=== PATIENT | male | born 1960 | race Two or more races ===

== ENCOUNTER 2024-11-07 23:33 | Inpatient (IN) | payer OTHER ==
[~2024-11-07] VITALS: Ht 170.2 cm; Wt 76.0 kg
[2024-11-07 23:55] VITALS: PULSE 83; RESP 19; O2SAT 97
[2024-11-08] VITALS (10 sets, daily range): BP systolic 93–106; BP diastolic 55–70; PULSE 55–105; RESP 16–28; TEMP 98.3–98.8; O2SAT 93–98
--- NOTE | 2024-11-08 00:08 | DVH ---
CHEST RADIOGRAPH Indication: sob, cp Technique: Single frontal view of the chest was obtained COMPARISON: None FINDINGS: Lines and Tubes: Sternal wires in place. Lungs: Mild to moderate interstitial pulmonary edema. Pleura: Small bilateral effusions. No pneumothorax. Cardiomediastinal contours: Cardiomegaly Bones: Unremarkable IMPRESSION: 1. Mild to moderate interstitial pulmonary edema. 2. Small bilateral effusions.
--- NOTE | 2024-11-08 00:09 | ED.PDOC ---
History of Present Illness HPI Comments 64-year-old male with history of CHF, NE, quadruple bypass, hyperlipidemia, hypertension presents to the emergency department with 4-5 days chest pain, shortness of breath, cough, dizziness, sore throat, congestion. Chest pain radiating to the back. He has worsening bilateral lower extremity edema. He has fevers and chills. 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 Patient was noted to be hypotensive by EMS with a systolic blood pressure of 84. Multiple PVCs on rhythm strip. Patient is on eliquis and plavix, states he has been compliant with his medication. Chief Complaint: Chest Pain Time Seen by MD: 23:47 Vital Signs Vital Signs Date Time Temp Pulse Resp B/P (MAP) Pulse Ox O2 Delivery O2 Flow Rate FiO2 11/08/24 00:46 102 11/08/24 00:37 120/54 11/07/24 23:55 98.5 20 100 98.5 Physical Exam General: Awake, alert and oriented. No acute distress. Skin: Skin in warm, dry and intact. Appropriate color for ethnicity. HEENT: Nasal cannula in place The head is normocephalic and atraumatic. Conjunctivae are clear without exudates or hemorrhage. Sclera is non-icteric. EOM are intact. No signs of nystagmus. Eyelids are normal in appearance without swelling or lesions. Oral mucosa is pink and moist Neck: The neck is supple with normal range of motion. No JVD. Cardiac: Heart rate and rhythm are normal. No murmurs, gallops, or rubs are auscultated. Respiratory: No signs of respiratory distress. Lung sounds are clear in all lobes bilaterally without rales, ronchi, or wheezes. Abdominal: Abdomen is soft, non-tender without distention. Bowel sounds are present and normoactive in all four quadrants. Extremities: Bilateral lower extremity edema Neurological: The patient is awake, alert and oriented to person, place, and time with normal speech. Speech is clear. There is no facial asymmetry. Psychiatric: Appropriate mood and affect. Good judgement and insight. No visual or auditory hallucinations. Review of Systems: As stated in HPI Was a procedure done? Was a procedure done?: No EKG EKG : Comments Sinus tachycardia with multiple PVCs. No STEMI, rate of 102 Differential Dx Considerations may include: Differential diagnoses considered include acute ischemic coronary syndrome, aortic dissection, cardiac tamponade, mediastinitis, pulmonary embolus, pneumothorax, tension pneumothorax, esophageal rupture, coronary artery vasospasm, myocarditis, pericarditis, pneumonia, pulmonary edema, esophageal tear, pancreatitis, aortic stenosis, dilated cardiomyopathy, hypertrophic cardiomyopathy, mitral valve prolapse, malignancy, pleuritis, pneumomediastinum, primary pulmonary hypertension, cholecystitis, esophageal spasm, esophagus, gastritis, GERD, peptic ulcer disease, costochondritis, fibromyalgia, rib fracture, herpes zoster, radicular syndromes, thoracic outlet syndrome, so matization. X-Ray, Labs, Meds, VS Vital Signs Date Time Temp Pulse Resp B/P (MAP) Pulse Ox O2 Delivery O2 Flow Rate FiO2 11/08/24 00:46 102 11/08/24 00:37 120/54 11/07/24 23:55 98.5 108 20 120/54 (76) 100 98.5 11/07/24 23:51 98.3 110 22 104/74 (84) 94 11/07/24 23:42 102 Lab Test 11/08/24 00:51 11/08/24 00:40 11/08/24 00:28 11/08/24 00:04 Range/Units Troponin I High Sensitivity Pending 837 *H </=54 ng/L Influenza Type A Antigen Pending Influenza Type B Antigen Pending SARS-CoV-2 Antigen (Rapid) Pending Blood Gas Specimen Type Arterial Blood Gas Sample Site Right radial Blood Gas Patient Temperature 37.0 Arterial Blood Date Drawn [id number] Arterial Blood pH 7.480 H 7.350-7.450 Arterial Blood Partial Pressure CO2 33.3 L 35.0-48.0 mmHg Arterial Blood Partial Pressure O2 78.3 L 83.0-108.0 mmHg Arterial Blood HCO3 24.2 21.0-28.0 mmol/L Arterial Blood Oxygen Saturation 95.3 94.0-98.0 % Arterial Blood Base Excess 1.4 -2.0-3.0 mmol/L Arterial Blood Oxyhemoglobin 94.2 94.0-98.0 % Arterial Blood Carboxyhemoglobin 0.8 0.5-1.5 % Arterial Blood Methemoglobin 0.4 0.0-1.5 % Ayush Test Modified Blood Gas Total Hemoglobin 14.90 13.5-17.5 g/dL Blood Gas Modality Nasal cannula FiO2 % 28.0 White Blood Count 9.5 4.4-10.8 10^3/uL Red Blood Count 5.25 4.5-5.90 10^6/uL Hemoglobin 15.3 13.5-17.5 g/dL Hematocrit 45.6 41.0-53.0 % Mean Corpuscular Volume 86.9 80.0-100.0 fL Mean Corpuscular Hemoglobin 29.1 28.0-32.0 pg Mean Corpuscular Hemoglobin Concent 33.5 32.0-36.0 g/dL Red Cell Distribution Width 14.6 H 11.8-14.3 % Platelet Count 205 140-450 10^3/uL Mean Platelet Volume 9.2 6.9-10.8 fL Neutrophils (%) (Auto) 76.9 37.0-80.0 % Lymphocytes (%) (Auto) 17.0 10.0-50.0 % Monocytes (%) (Auto) 5.7 0.0-12.0 % Eosinophils (%) (Auto) 0.1 0.0-7.0 % Basophils (%) (Auto) 0.3 0.0-2.0 % Neutrophils # (Auto) 7.3 1.6-8.6 10 ^3/uL Lymphocytes # (Auto) 1.6 0.4-5.4 10 ^3/uL Monocytes # (Auto) 0.5 0-1.3 10 ^3/uL Eosinophils # (Auto) 0 0-0.8 10 ^3/uL Basophils # (Auto) 0 0-0.2 10 ^3/uL Nucleated Red Blood Cells 0.1 % Prothrombin Time Pending Prothrombin Time INR Pending Activated Partial Thromboplast Time Pending D-Dimer, Quantitative 2.47 H 0.0-0.49 mg/L FEU Sodium Level 137 136-145 mmol/L Potassium Level 3.6 3.5-5.1 mmol/L Chloride Level 102 98-107 mmol/L Carbon Dioxide Level 25 20-31 mmol/L Anion Gap 10 5-15 Blood Urea Nitrogen 17 9-23 mg/dL Creatinine 1.39 H 0.700-1.30 mg/dL Glomerular Filtration Rate Calc 57 >90 mL/min BUN/Creatinine Ratio 12.2 10.0-20.0 Serum Glucose 192 H 74-106 mg/dL Calcium Level 10.0 8.7-10.4 mg/dL Magnesium Level 2.1 1.6-2.6 mg/dL Total Bilirubin 1.0 0.2-1.0 mg/dL Aspartate Amino Transferase (AST) 27 13-40 U/L Alanine Aminotransferase (ALT) 32 7-40 U/L Alkaline Phosphatase 132 H 46-116 U/L B-Type Natriuretic Peptide 1263.17 0-100 pg/mL Total Protein 7.5 5.7-8.2 g/dL Albumin 4.5 3.2-4.8 g/dL Current Medications Medications (Trade) Dose Ordered Sig/Angela Route Start Time Stop Time Status Last Admin Furosemide (Lasix Injection) 40 mg ONCE ONCE IV 11/08/24 00:00 11/08/24 00:01 DC 11/08/24 00:37 Time of 1ST Reevaluation: 00:00 Reevaluation 1ST: Unchanged Patient Education/Counseling: Diagnosis, Treatment, Prognosis, Other (Need for admission) Family Education/Counseling: No Family Present Departure 1 Departure Time of Disposition: 00:09 Impression: Primary Impression: SOB (shortness of breath) Additional Impressions: Chest pain NSTEMI (non-ST elevated myocardial infarction) CHF exacerbation Disposition: 09 ADMITTED INPATIENT Condition: Stable Comments 01:20: Discussed with Dr. Rowland (cardiology) who reviewed EKG. Recommendation is no STEMI, heparin drip and further workup. 64 year old male with history of CAD, CHF, HTN presented with chest pain and shortness of breath. Troponin was elevated at 837. EKG showed no STEMI. CXR shows pulmonary edema. Patient started on Lasix and Heparin Drip. CT angiogram for PE pending. Patient admitted for further treatment, evaluation and monitoring. Critical Care Note Critical Care Time?: No Stability Stability form required: No Heart Score Heart Score: Heart Score Response (Comments) Value History Moderate Suspicious 1 EKG Repolarization Disturb 1 Age 45-64 1 Risk Factors >3 or Hx ASHD 2 Troponin >3 x's Normal limit 2 Total 7 NILES COELLO MD Nov 08, 2024 00:09
[2024-11-08 00:14] LABS: Basophils # (auto) 0 10 ^3/uL (0-0.2); Basophils % (auto) 0.3 % (0.0-2.0); Eosinophils # (auto) 0 10 ^3/uL (0-0.8); Eosinophils % (auto) 0.1 % (0.0-7.0); Hematocrit 45.6 % (41.0-53.0); Hemoglobin 15.3 g/dL (13.5-17.5); Lymphocytes # (auto) 1.6 10 ^3/uL (0.4-5.4); Mean Corpuscular Hemoglobin 29.1 pg (28.0-32.0); Mean Corpuscular Hgb Conc. 33.5 g/dL (32.0-36.0); Mean Corpuscular Volume 86.9 fL (80.0-100.0); Monocytes # (auto) 0.5 10 ^3/uL (0-1.3); Monocytes % (auto) 5.7 % (0.0-12.0); Neutrophils # (auto) 7.3 10 ^3/uL (1.6-8.6); Neutrophils % (auto) 76.9 % (37.0-80.0); Nucleated Red Blood Cells % 0.1 %; Platelet Count (auto) 205 10^3/uL (140-450); Red Blood Cells 5.25 10^6/uL (4.5-5.90); Red Cell Distribution Width 14.6 % (11.8-14.3); White Blood Cell 9.5 10^3/uL (4.4-10.8)
[2024-11-08 00:33] LABS: INR 1.17 (0.9-1.15); Prothrombin Time 12.2 sec (9.3-11.8)
[2024-11-08] MEDS: FUROSEMIDE 40 MG/4 ML VIAL IV ONE (00:37)
[2024-11-08 00:38] LABS: Alanine Aminotransferase 32 U/L (7-40); Albumin 4.5 g/dL (3.2-4.8); Anion Gap 10 (5-15); Aspartate Aminotransferase 27 U/L (13-40); Carbon Dioxide 25 mmol/L (20-31); Chloride 102 mmol/L (98-107); Magnesium 2.1 mg/dL (1.6-2.6); Potassium 3.6 mmol/L (3.5-5.1); Sodium 137 mmol/L (136-145); Total Protein 7.5 g/dL (5.7-8.2)
[2024-11-08 00:38] LABS: Base Excess 1.4 mmol/L (-2.0-3.0)
[2024-11-08 00:42] LABS: Alkaline Phosphatase 132 U/L (46-116); Glucose 192 mg/dL (74-106)
[2024-11-08 00:50] LABS: BUN/Creatinine Ratio 12.2 (10.0-20.0); Blood Urea Nitrogen 17 mg/dL (9-23)
[2024-11-08] MEDS: HEPARIN SODIUM (PORCINE) 5000 UNITS/ML 1ML VIAL IV ONE (01:27)
[2024-11-08 01:57] LABS: COVID19 ANTIGEN SOFIA FIA NEGATIVE (NEGATIVE); Rapid Influenza A Negative (Negative); Rapid Influenza B Negative (Negative)
[2024-11-08] MEDS: IOHEXOL 350 MG/ML 100ML IJ ONE (02:25)
[2024-11-08] MEDS ORDERED: ACETAMINOPHEN 325 MG TAB PO PRN (02:45)
[2024-11-08] MEDS ORDERED: DOCUSATE SOD 100 MG CAP PO PRN (02:45)
[2024-11-08] MEDS ORDERED: ONDANSETRON HCL 4 MG/2 ML VIAL IV PRN (02:45)
[2024-11-08] MEDS ORDERED: HYDROcodone-ACET 5/325MG TAB PO PRN (02:45)
[2024-11-08] MEDS ORDERED: DEXTROSE (50%) 50ML SYRG IV PRN (02:45)
--- NOTE | 2024-11-08 02:53 | DVHHP2 ---
History of Present Illness Reason for Visit: Acute exacerbation of congestive heart failure History of Present Illness The patient is a 64-year-old male with past medical history of CHF, DM, hypertension, and hyperlipidemia who presented to [facility] ED with complaint of chest pain for a proximally 4 days duration. Patient reports symptoms progressively get worse with shortness of breaths, cough, dizziness sore throat, congestion, radiating pain to his back, bilateral lower extremity edema, getting worse that prompted this visit. Patient was seen and evaluated in the ED, laboratory data shows WBC 9.5, platelets 205, sodium 137, potassium 3.6, BUN 17, creatinine 1.39, GFR 57, glucose 192, troponin 837, BNP 1263.17, D-dimer 2.47. CT Angiography showed no evidence of pulmonary atrial thromboembolism, no evidence of thick aneurysm. Chest x-ray revealing mild to moderate interstitial pulmonary edema, small bilateral effusions. Patient was started on IV Lasix, please see medication orders section in the computer. On my assessment, patient denied chest pain at this moment, no headache, no dizziness, no diaphoresis, no diarrhea, no nausea, no vomiting, no fever, no chills. Patient was admitted for further evaluation and medical management. Past Medical History DM, CHF, HTN, HLD, IN Past Surgical History Quadruple bypass Family History Reviewed, noncontributory to the management of this case. Past Social History The patient lives at home, denies smoking, alcohol or illicit drugs abuse. Review of Systems Constitutional: Yes: Weakness; No: Fever, Chills, Sweats, Malaise, Other Eyes: No: Pain, Vision change, Conjunctivae inflammation, Eyelid inflammation, Other, Redness ENT: No: Ear pain, Ear discharge, Nose pain, Nose discharge, Nose congestion, Mouth pain, Mouth swelling, Throat pain, Throat swelling, Other Respiratory: Cough, Shortness of breath, SOB with excertion, Other (SOB at rest); No: Dry, Wheezing, Hemoptysis, Pleuritic Pain, Sputum, Wheezing Cardiovascular: Chest Pain, Edema; No: Palpitations, Orthopnea, Paroxysmal Noc. Dyspnea, Lt Headedness, Other Gastrointestinal: No: Nausea, Vomiting, Abdominal Pain, Diarrhea, Constipation, Melena, Hematochezia, Other Genitourinary: No Dysuria, No Frequency, No Incontinence, No Hematuria, No Retention, No Other Musculoskeletal: other (Lower extremity swelling); No: neck pain, shoulder pain, arm pain, back pain, hand pain, leg pain, foot pain Skin: No: Rash, Lesions, Jaundice, Bruising, Other Neurological: Other (Dizziness); No: Weakness, Numbness, Incoordination, Change in speech, Confusion, Seizures Allergies: Coded Allergies: No Known Drug Allergy (Verified Allergy, Unknown, 11/08/24) Medications Current Medications Medications Dose Ordered Sig/Angela Route Start Time Stop Time Status Last Admin Dose Admin Heparin Sodium/ Dextrose 250 ml @ 9.54 mls/hr Q24H IV 11/08/24 01:00 UNV Carvedilol 3.125 mg Q12HR PO 11/08/24 10:00 UNV Furosemide 40 mg DAILY IV 11/08/24 10:00 UNV Atorvastatin Calcium 40 mg HS PO 11/08/24 22:00 UNV Diagnostic Test (Pha) 1 strip ACHS 11/08/24 07:00 UNV Insulin Human Regular ACHS SC 11/08/24 07:00 UNV Dextrose 50 ml UD PRN IV 11/08/24 02:45 UNV Sodium Chloride 10 ml Q8HR IV 11/08/24 06:00 UNV Acetaminophen/ Hydrocodone Bitart 1 tab Q4HP PRN PO 11/08/24 02:45 UNV Ondansetron HCl 4 mg Q4HP PRN IV 11/08/24 02:45 UNV Docusate Sodium 100 mg BIDPRN PRN PO 11/08/24 02:45 UNV Acetaminophen 650 mg Q6HP PRN PO 11/08/24 02:45 UNV Exam Vital Signs Vital Signs Date Time Temp Pulse Resp B/P (MAP) Pulse Ox O2 Delivery O2 Flow Rate FiO2 11/08/24 02:32 91/65 (74) 11/08/24 01:55 105 20 93 11/07/24 23:55 Nasal Cannula* 2 28 11/07/24 23:55 98.5 98.5 General Appearance: Alert, Oriented X3, Cooperative, No acute distress HEENT: Atraumatic, PERRLA, EOMI, Mucous membr. moist/pink Respiratory: Normal air movement, Other (Diminished breath sounds) Cardiovascular: Regular rate, Normal S1, Normal S2, No murmurs Abdominal: Normal bowel sounds, Soft, No tenderness, No hepatospenomegaly, No masses Extremities: No clubbing, No cyanosis, Normal pulses, No tenderness/swelling, Other (Bilateral lower extremity edema) Skin: No rashes, No breakdown, No significant lesion Neuro: Normal speech, Normal tone, Sensation intact, Cranial nerves 3-12 NL, Reflexes 2+, Other (Generalized weakness) Psych/Mental Status: Mental status NL, Mood NL Labs/Xrays Labs Test 11/08/24 00:51 11/08/24 00:40 11/08/24 00:28 11/08/24 00:04 Range/Units Troponin I High Sensitivity 790 *H </=54 ng/L Influenza Type A Antigen Negative Negative Influenza Type B Antigen Negative Negative SARS-CoV-2 Antigen (Rapid) Negative NEGATIVE Blood Gas Specimen Type Arterial Blood Gas Sample Site Right radial Blood Gas Patient Temperature 37.0 Arterial Blood Date Drawn [id number] Arterial Blood pH 7.480 H 7.350-7.450 Arterial Blood Partial Pressure CO2 33.3 L 35.0-48.0 mmHg Arterial Blood Partial Pressure O2 78.3 L 83.0-108.0 mmHg Arterial Blood HCO3 24.2 21.0-28.0 mmol/L Arterial Blood Oxygen Saturation 95.3 94.0-98.0 % Arterial Blood Base Excess 1.4 -2.0-3.0 mmol/L Arterial Blood Oxyhemoglobin 94.2 94.0-98.0 % Arterial Blood Carboxyhemoglobin 0.8 0.5-1.5 % Arterial Blood Methemoglobin 0.4 0.0-1.5 % Ayush Test Modified Blood Gas Total Hemoglobin 14.90 13.5-17.5 g/dL Blood Gas Modality Nasal cannula FiO2 % 28.0 White Blood Count 9.5 4.4-10.8 10^3/uL Red Blood Count 5.25 4.5-5.90 10^6/uL Hemoglobin 15.3 13.5-17.5 g/dL Hematocrit 45.6 41.0-53.0 % Mean Corpuscular Volume 86.9 80.0-100.0 fL Mean Corpuscular Hemoglobin 29.1 28.0-32.0 pg Mean Corpuscular Hemoglobin Concent 33.5 32.0-36.0 g/dL Red Cell Distribution Width 14.6 H 11.8-14.3 % Platelet Count 205 140-450 10^3/uL Mean Platelet Volume 9.2 6.9-10.8 fL Neutrophils (%) (Auto) 76.9 37.0-80.0 % Lymphocytes (%) (Auto) 17.0 10.0-50.0 % Monocytes (%) (Auto) 5.7 0.0-12.0 % Eosinophils (%) (Auto) 0.1 0.0-7.0 % Basophils (%) (Auto) 0.3 0.0-2.0 % Neutrophils # (Auto) 7.3 1.6-8.6 10 ^3/uL Lymphocytes # (Auto) 1.6 0.4-5.4 10 ^3/uL Monocytes # (Auto) 0.5 0-1.3 10 ^3/uL Eosinophils # (Auto) 0 0-0.8 10 ^3/uL Basophils # (Auto) 0 0-0.2 10 ^3/uL Nucleated Red Blood Cells 0.1 % D-Dimer, Quantitative 2.47 H 0.0-0.49 mg/L FEU Sodium Level 137 136-145 mmol/L Potassium Level 3.6 3.5-5.1 mmol/L Chloride Level 102 98-107 mmol/L Carbon Dioxide Level 25 20-31 mmol/L Anion Gap 10 5-15 Blood Urea Nitrogen 17 9-23 mg/dL Creatinine 1.39 H 0.700-1.30 mg/dL Glomerular Filtration Rate Calc 57 >90 mL/min BUN/Creatinine Ratio 12.2 10.0-20.0 Serum Glucose 192 H 74-106 mg/dL Calcium Level 10.0 8.7-10.4 mg/dL Magnesium Level 2.1 1.6-2.6 mg/dL Total Bilirubin 1.0 0.2-1.0 mg/dL Aspartate Amino Transferase (AST) 27 13-40 U/L Alanine Aminotransferase (ALT) 32 7-40 U/L Alkaline Phosphatase 132 H 46-116 U/L B-Type Natriuretic Peptide 1263.17 0-100 pg/mL Total Protein 7.5 5.7-8.2 g/dL Albumin 4.5 3.2-4.8 g/dL PATIENT: LOGAN VALDERRAMA ACCT: [id number] UNIT: [id number] : 1960 LOC: ER ROOM / BED: / AGE / SEX: 64 / M ADM STATUS: REG ER SERVICE [id number] ORDERING PHYSICIAN: NILES COELLO MD PROCEDURE(s): CTACH - CT ANGIO CHEST CONTRAST REASON: Chest pain, SOB, elevated D-dimer ORDER NUMBER(s): [id number], ACCESSION NUMBER(s): [id number] Examination: CTACH CLINICAL INDICATION: Chest pain, SOB, elevated D-dimer. COMPARISON: None. CONTRAST USED: Intravenous. TECHNIQUE: Axial images were obtained through the thorax with contrast. Appropriate 3D, MPR, CMPR, thick and thin MIP and VRT view were obtained from multiple phase reconstructions. Multiplanar reconstructions were obtained. CT scan done according to ALARA (As Low As Reasonably Achievable). FINDINGS: Lower neck and thyroid: Hypodense nodule measuring 12 x 9 mm in the right lobe of thyroid. Suggest ultrasound correlation. Non-opacification of aorta is seen. No evidence of aneurysm. No mediastinal masses or lymphadenopathy is seen. Central pulmonary arteries appear unremarkable. The right and left main pulmonary arteries appear normal. No evidence of filling defect is seen. Smooth interlobular septal thickening is right upper lobe. Subsegmental atelectasis is seen in the right middle lobe, lingula and both lower lobes. Patchy areas of consolidation and collapse are noted in both lung bases. Small calcified granuloma is seen in the right lung base. Rest of the lung parenchyma appears unremarkable. Moderate bilateral pleural effusion is seen causing passive atelectasis of the underlying lung parenchyma. No pericardial effusion is seen. Degenerative changes are seen in the thoracic spine. Sternotomy wires are seen Visualized Upper Abdomen: Non-obstructive 2-3 mm right renal calculi are seen. IMPRESSION: 1. No evidence of pulmonary arterial thromboembolism. 2. No evidence of aortic aneurysm 3. Smooth interlobular septal thickening is right upper lobe. 4. Patchy areas of consolidation and collapse are noted in both lung bases. 5. Moderate bilateral pleural effusion is seen causing passive atelectasis of the underlying lung parenchyma. ORDERING PHYSICIAN: NILES COELLO MD PROCEDURE(s): CXR1 - CHEST XRAY 1 VIEW REASON: sob, cp ORDER NUMBER(s): [id number], ACCESSION NUMBER(s): [id number] CHEST RADIOGRAPH Indication: sob, cp Technique: Single frontal view of the chest was obtained COMPARISON: None FINDINGS: Lines and Tubes: Sternal wires in place. Lungs: Mild to moderate interstitial pulmonary edema. Pleura: Small bilateral effusions. No pneumothorax. Cardiomediastinal contours: Cardiomegaly Bones: Unremarkable IMPRESSION: 1. Mild to moderate interstitial pulmonary edema. 2. Small bilateral effusions. Assessment/Plan Assessment/Plan Acute respiratory distress Chest pain Elevated D-dimer NSTEMI (non-ST elevated myocardial infarction) Acute exacerbation of congestive heart failure Plan 1. Admit to telemetry unit 2. Breathing treatment 3. Pain control management 4. Management of fluids and electrolytes 5. Consultation for Cardiology 6. Diagnostic tests CT Angiography 7. DVT prophylaxis-on heparin drip 8. Repeat labs CBC, CMP in a.m. 9. Continue with current medical management 10. Treatment plan discussed with patient and RN. Patient verbalized underst anding. Plan discussed with: Patient, Other (RN) My Orders Orders - AMBER KIDD DNP Procedure Category Date Status Time Complete Blood Count LAB 11/08/24 Logged 04:00 Comprehensive LAB 11/08/24 Logged Metabolic Panel 04:00 Carvedilol Tablet PHA 11/08/24 Logged (Coreg Tablet) 10:00 Furosemide Injection PHA 11/08/24 Logged (Lasix Injection) 10:00 Atorvastatin (Lipitor) PHA 11/08/24 Logged 22:00 Hemoglobin A1c LAB 11/08/24 Logged 02:40 * Cardiology Consult CONS 11/08/24 Transmitted 02:40 Consistent DIET 11/08/24 Transmitted Carb(Ccho)Diabetes Breakfast Glucose Blood PHA 11/08/24 Logged (Accu-Chek Comfort 07:00 Insulin R (Human) PHA 11/08/24 Logged (Insulin R) 07:00 Dextrose 50% Syringe PHA 11/08/24 Logged 02:45 Allergies ISRAEL 11/08/24 In Process 02:40 Code Status CODE 11/08/24 Transmitted 02:40 Sodium Chloride Lock PHA 11/08/24 Logged (Saline Lock Ns) 06:00 Oxygen Per Hour RT 11/08/24 Transmitted 02:40 Hydrocodone-Acet PHA 11/08/24 Logged 5/325mg Tab ([place] 02:45 Ondansetron Hcl PHA 11/08/24 Logged (Zofran) 02:45 Docusate Sodium PHA 11/08/24 Logged Capsule (Colace 02:45 Complete Blood Count LAB 11/09/24 Verified 04:00 Comprehensive LAB 11/09/24 Verified Metabolic Panel 04:00 Echo 2d Mode Cardiac US 11/08/24 Logged DOP 02:40 Condition: Serious [place]RA[place] 11/08/24 In Process 02:40 Acetaminophen Tablet PHA 11/08/24 Logged (Tylenol Tablet) 02:45 Bedrest With Bathroom [place] 11/08/24 In Process Privileg 02:40 Sequential [place] 11/08/24 In Process Compression Device Problem List: (1) Acute respiratory distress (2) Chest pain (3) Elevated d-dimer (4) Acute exacerbation of congestive heart failure (5) NSTEMI (non-ST elevated myocardial infarction) Date of Service: Nov 08, 2024 Billing Provider: AMBER KIDD DNP Common Visit Codes: [id number] INP/OBS CARE (HIGH) AMBER KIDD DNP Nov 08, 2024 02:53
[2024-11-08 03:00] LABS: Urine Bacteria None Seen /hpf (None Seen)
[2024-11-08] MEDS ORDERED: NITROGLYCERIN 0.4 MG SL TAB SL PRN (03:00)
[2024-11-08] MEDS ORDERED: MORPHINE SULFATE INJ 2 MG/ml SYRG IV PRN (03:00)
--- NOTE | 2024-11-08 03:12 | DVH ---
Examination: CTACH CLINICAL INDICATION: Chest pain, SOB, elevated D-dimer. COMPARISON: None. CONTRAST USED: Intravenous. TECHNIQUE: Axial images were obtained through the thorax with contrast . Appropriate 3D, MPR, CMPR, thick and thin MIP and VRT view were obtained from multiple phase recon structions. Multiplanar reconstructions were obtained. CT scan done according to ALARA (As Low As [place] sonably Achievable). FINDINGS: Lower neck and thyroid: Hypodense nodule measuring 12 x 9 mm in the right lobe of thyroid. Suggest u ltrasound correlation. Non-opacification of aorta is seen. No evidence of aneurysm. No mediastinal masses or lymphadenopathy is seen. Central pulmonary arteries appear unremarkable. The right and left main pulmonary arteries appear no rmal. No evidence of filling defect is seen. Smooth interlobular septal thickening is right upper lobe. Subsegmental atelectasis is seen in the right middle lobe, lingula and both lower lobes. Patchy areas of consolidation and collapse are noted in both lung bases. Small calcified granuloma is seen in the right lung base. Rest of the lung parenchyma appears unremarkable. Moderate bilateral pleural effusion is seen causing passive atelectasis of the underlying lung parenc hyma. No pericardial effusion is seen. Degenerative changes are seen in the thoracic spine. Sternotomy wires are seen Visualized Upper Abdomen: Non-obstructive 2-3 mm right renal calculi are seen. IMPRESSION: 1. No evidence of pulmonary arterial thromboembolism. 2. No evidence of aortic aneurysm 3. Smooth interlobular septal thickening is right upper lobe. 4. Patchy areas of consolidation and collapse are noted in both lung bases. 5. Moderate bilateral pleural effusion is seen causing passive atelectasis of the underlying lung pa cameron. Electronically Signed 11/08/2024 03:11 Gail Crow
[2024-11-08 03:24] LABS: Urine Blood 1+ /uL (Negative); Urine Clarity Clear (Clear); Urine Color Yellow (Yellow); Urine Mucus FEW (None Seen); Urine Protein, UAD TRACE (Negative); Urine Specific Gravity 1.016 (1.001-1.035); Urine Squamous Epithelial Cell None Seen /hpf (<5); Urine Urobilinogen Normal (Negative); Urine WBC 5 /hpf (0 - 3)
[2024-11-08 04:47] LABS: INR 1.2 (0.9-1.15); Partial Thromboplastin Time 45.9 SEC (24.5-34.5); Prothrombin Time 12.5 sec (9.3-11.8)
[2024-11-08] MEDS: HEPARIN DRIP/D5W 100UNITS/ML 250 ML IV SCH (05:02)
[2024-11-08] MEDS: IPRATROPIUM BROM 0.5 MG/2.5ML INH SOL ONE (05:35)
[2024-11-08] MEDS: ALBUTEROL SULF 2.5 MG/0.5ML(0.5%) NEB SOLN NEB PRN (05:35)
[2024-11-08] MEDS: IPRATROPIUM BROM 0.5 MG/2.5ML INH SOL NEB PRN (05:35)
[2024-11-08] MEDS: ALBUTEROL SULF 2.5 MG/0.5ML(0.5%) NEB SOLN ONE (05:36)
[2024-11-08] MEDS: SODIUM CHLOR 0.9% PF (SALINE LOCK) 10ML VIAL/SYR IV SCH (05:41)
[2024-11-08 06:21] LABS: Basophils # (auto) 0.1 10 ^3/uL (0-0.2); Basophils % (auto) 1.2 % (0.0-2.0); Eosinophils # (auto) 0 10 ^3/uL (0-0.8); Eosinophils % (auto) 0.2 % (0.0-7.0); Hemoglobin 14.7 g/dL (13.5-17.5); Lymphocytes # (auto) 1.6 10 ^3/uL (0.4-5.4); Lymphocytes % (auto) 19.6 % (10.0-50.0); Mean Corpuscular Hemoglobin 28.9 pg (28.0-32.0); Mean Corpuscular Hgb Conc. 33.5 g/dL (32.0-36.0); Mean Corpuscular Volume 86.3 fL (80.0-100.0); Monocytes # (auto) 0.5 10 ^3/uL (0-1.3); Monocytes % (auto) 6.2 % (0.0-12.0); Neutrophils # (auto) 5.8 10 ^3/uL (1.6-8.6); Neutrophils % (auto) 72.8 % (37.0-80.0); Nucleated Red Blood Cells % 0.1 %; Platelet Count (auto) 193 10^3/uL (140-450); Red Cell Distribution Width 14.8 % (11.8-14.3); White Blood Cell 7.9 10^3/uL (4.4-10.8)
[2024-11-08] MEDS: ACCU-CHEK COMFORT CURVE STRIP VI SCH (06:41)
[2024-11-08 06:45] LABS: Alanine Aminotransferase 28 U/L (7-40); Anion Gap 9 (5-15); Aspartate Aminotransferase 27 U/L (13-40); BUN/Creatinine Ratio 13.2 (10.0-20.0); Blood Urea Nitrogen 17 mg/dL (9-23); Calcium 9.6 mg/dL (8.7-10.4); Carbon Dioxide 24 mmol/L (20-31); Chloride 103 mmol/L (98-107); Potassium 3.8 mmol/L (3.5-5.1)
[2024-11-08 06:46] LABS: Bilirubin, Total 0.8 mg/dL (0.2-1.0); Total Protein 6.7 g/dL (5.7-8.2)
[2024-11-08] MEDS: InsuLIN REG 1unit/0.01ml Soln (100units/ml) SC SCH (06:47)
[2024-11-08 06:51] LABS: Alkaline Phosphatase 118 U/L (46-116); Glucose 150 mg/dL (74-106); Sodium 136 mmol/L (136-145)
--- NOTE | 2024-11-08 06:59 | ECG ---
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
[2024-11-08] MEDS: CARVEDILOL 3.125 MG TAB PO SCH (09:31)
[2024-11-08] MEDS: FUROSEMIDE 40 MG/4 ML VIAL IV SCH ×2 (10:47→18:49)
[2024-11-08] MEDS ORDERED: levoFLOXacin 750MG 150 ML IV ONE (11:00)
[2024-11-08 11:30] LABS: INR 1.13 (0.9-1.15); Prothrombin Time 11.8 sec (9.3-11.8)
--- NOTE | 2024-11-08 11:51 | DVHINCON2 ---
CORY DOVE [facility] 11/08/24 1151: Date Seen: Nov 08, 2024 Referring Physician HUSAM Love Reason for Consultation CHF exacerbation History of Present Illness This is a 64-year-old Kittitian-speaking mostly male who presented to the emergency room with a chief complaint of shortness of breath for two days. The patient complains of progressive shortness of breath associated with PND, ORDAZ, lower extremity edema, a productive cough with yellow sputum, and chest pain described as pressure-like localized to the substernal area. He underwent multiple 12 lead electrocardiogram revealing sinus rhythm with an associated interventricular conduction delay, suggestive of left ventricular hypertrophy, and atrial enlargement. Troponin levels peaked at a 837 ng/L. Reports a significant medical history for cardiovascular disease nevertheless he has failed to follow up with the primary senior insight manager in approximately one year. Reports a recent admission last month at [facility] in [place], [place], where he underwent a cardiac catheterization and coronary angiogram. Unfortunately, the patient is a very poor historian and does not recall any catheter based interventions. Home medications include Eliquis, Plavix, and ASA. Admits to some poor medical compliance. Significant medical history includes severe coronary artery disease status post quadruple vessel CABG on 2008, congestive heart failure, hypertension, dyslipidemia, insulin-dependent diabetes mellitus, and history of CVAs x2. Past Medical History Past medical history reviewed. No other significant than mentioned above. Past Surgical History Quadruple vessel CABG, 2008 Family History Family history reviewed. Social History Denies the use of illicit drugs, alcohol, or tobacco use. Allergies: Coded Allergies: No Known Drug Allergy (Verified Allergy, Unknown, 11/08/24) Home Meds Reported Medications Clopidogrel Bisulfate (CLOPIDOGREL) 75 Mg Tab, 75 MG PO DAILY, TAB 11/08/24 Apixaban Base (ELIQUIS) 5 Mg Tab, 5 MG PO BID, TAB 11/08/24 Atorvastatin Calcium (ATORVASTATIN CALCIUM) 80 Mg Tab, 80 MG PO DAILY, TAB 11/08/24 Furosemide (Furosemide) 40 Mg Tab, 40 MG PO DAILY 11/08/24 Isosorbide Dinitrate (Isosorbide Dinitrate) 30 Mg Tab, 30 MG PO DAILY, TAB 11/08/24 Pioglitazone Hydrochloride (ACTOS TABLET) 30 Mg Tb, 1 TAB PO DAILY, TAB 11/08/24 Losartan Potassium (Losartan Potassium) 25 Mg Tab, 25 MG PO DAILY, MG 11/08/24 Metoprolol Succinate (Toprol Xl) 25 Mg Tab, 25 MG PO DAILY, TAB 11/08/24 Home Meds Home medications reviewed. Current Medications Current Medications Medications (Trade) Dose Ordered Sig/Angela Route PRN Reason Start Time Stop Time Status Last Admin Heparin Sodium/ Dextrose 250 ml @ 10 mls/hr Q24H IV 11/08/24 05:00 11/08/24 10:54 DC 11/08/24 05:02 Carvedilol (Coreg Tablet) 3.125 mg Q12HR PO 11/08/24 10:00 11/08/24 10:54 DC Furosemide (Lasix Injection) 40 mg DAILY IV 11/08/24 10:00 11/08/24 10:47 Atorvastatin Calcium (Lipitor) 40 mg HS PO 11/08/24 22:00 11/08/24 10:54 DC Diagnostic Test (Pha) (Accu-Chek Comfort Curve T) 1 strip ACHS 11/08/24 07:00 11/08/24 06:41 Insulin Human Regular (InsuLIN R) ACHS SC 11/08/24 07:00 11/08/24 06:47 Dextrose 50 ml UD PRN IV Blood Sugar LESS THAN 60 11/08/24 02:45 Sodium Chloride (Saline Lock Ns) 10 ml Q8HR IV 11/08/24 06:00 11/08/24 05:41 Acetaminophen/ Hydrocodone Bitart (Ary 5/325MG Tab) 1 tab Q4HP PRN PO MODERATE PAIN (4-6 PAIN SCALE) 11/08/24 02:45 11/08/24 10:54 DC Ondansetron HCl (Zofran) 4 mg Q4HP PRN IV NAUSEA / VOMITING 11/08/24 02:45 Docusate Sodium (Colace Capsule) 100 mg BIDPRN PRN PO FOR CONSTIPATION 11/08/24 02:45 11/08/24 10:54 DC Acetaminophen (Tylenol Tablet) 650 mg Q6HP PRN PO PAIN SCALE 1-3 OR TEMP>100.4 11/08/24 02:45 Nitroglycerin (Ntrostat Sublingual) 0.4 mg Q5MINP PRN SL FOR CHEST PAIN 11/08/24 03:00 Morphine Sulfate 2 mg Q30M PRN IV FOR CHEST PAIN 11/08/24 03:00 Ipratropium [place] (Atrovent Medneb) 0.5 mg Q4HPRN PRN NEB SHORTNESS OF BREATH 11/08/24 05:30 11/08/24 05:35 Albuterol (Ventolin Medneb) 2.5 mg Q4HPRN PRN NEB SHORTNESS OF BREATH 11/08/24 05:30 11/08/24 05:35 Atorvastatin Calcium (Lipitor) 80 mg HS PO 11/08/24 22:00 Apixaban (Eliquis) 5 mg BID PO 11/08/24 22:00 Aspirin 81 mg DAILY PO 11/09/24 10:00 Metoprolol Succinate (Toprol Xl) 25 mg DAILY PO 11/09/24 10:00 Levofloxacin/ Dextrose 150 ml @ 100 mls/hr DAILY IV 11/09/24 10:00 Review of Systems Constitutional: No symptom reported Ears, Nose, & Throat: No symptom reported Eyes: No symptom reported Neurological: No symptoms reported Pulmonary/Respiratory: SOB, PND, ORDAZ, productive cough Cardiovascular: Chest pain Gastrointestinal: No symptom reported Genitourinary: No symptom reported Musculoskeletal: No symptom reported Skin: No symptom reported Psychiatric: No symptom reported Endocrine: No symptom reported Hemotologic/Lymphatic: No symptom reported Vital Signs Vital Signs Date Time Temp Pulse Resp B/P (MAP) Pulse Ox O2 Delivery O2 Flow Rate FiO2 11/08/24 10:47 102/76 11/08/24 08:25 88 16 96 Nasal Cannula* 2 28 11/08/24 08:22 97.8 97.8 Physical Exam General Appearance: Cooperative. Well developed. Well nourished. Mild acute distress Head Exam: Normal inspection Neck Exam: Normal inspection. Non-tender. Normal alignment Pulmonary/Respiratory: Crackles to bilateral breath sounds Cardiovascular/Chest: Regular rate and rhythm. S1, S2. Sinus rhythm. No murmurs. + JVD. Peripheral Pulses: 2+ Radial (R). 2+ Radial (L). 2+ Pedal (R). 2+ Pedal (L) Abdominal Exam: Normal bowel sounds. Soft. Ankle Exam: Positive ankle pitting edema, 2+ Lower extremities: Positive lower extremity pitting edema, 2+ Neuro/Mental Status: A&O x4. Coherent but poor historian Thoughts/Psych: Normal thought pattern. Appropriate mood and affect. Good judgement and insight Appearance: Mild acute distress Skin Exam: Normal inspection. Normal color. Warm. Dry Labs/Diagnostic Data Labs Test 11/08/24 10:57 11/08/24 06:38 11/08/24 05:51 11/08/24 03:05 Range/Units Prothrombin Time 11.8 9.3-11.8 sec Prothrombin Time INR 1.13 0.9-1.15 Activated Partial Thromboplast Time 44.0 H 24.5-34.5 SEC POC Glucose 157 H 70-106 mg/dl White Blood Count 7.9 4.4-10.8 10^3/uL Red Blood Count 5.10 4.5-5.90 10^6/uL Hemoglobin 14.7 13.5-17.5 g/dL Hematocrit 44.0 41.0-53.0 % Mean Corpuscular Volume 86.3 80.0-100.0 fL Mean Corpuscular Hemoglobin 28.9 28.0-32.0 pg Mean Corpuscular Hemoglobin Concent 33.5 32.0-36.0 g/dL Red Cell Distribution Width 14.8 H 11.8-14.3 % Platelet Count 193 140-450 10^3/uL Mean Platelet Volume 9.8 6.9-10.8 fL Neutrophils (%) (Auto) 72.8 37.0-80.0 % Lymphocytes (%) (Auto) 19.6 10.0-50.0 % Monocytes (%) (Auto) 6.2 0.0-12.0 % Eosinophils (%) (Auto) 0.2 0.0-7.0 % Basophils (%) (Auto) 1.2 0.0-2.0 % Neutrophils # (Auto) 5.8 1.6-8.6 10 ^3/uL Lymphocytes # (Auto) 1.6 0.4-5.4 10 ^3/uL Monocytes # (Auto) 0.5 0-1.3 10 ^3/uL Eosinophils # (Auto) 0 0-0.8 10 ^3/uL Basophils # (Auto) 0.1 0-0.2 10 ^3/uL Nucleated Red Blood Cells 0.1 % Sodium Level 136 136-145 mmol/L Potassium Level 3.8 3.5-5.1 mmol/L Chloride Level 103 98-107 mmol/L Carbon Dioxide Level 24 20-31 mmol/L Anion Gap 9 5-15 Blood Urea Nitrogen 17 9-23 mg/dL Creatinine 1.29 0.700-1.30 mg/dL Glomerular Filtration Rate Calc 63 >90 mL/min BUN/Creatinine Ratio 13.2 10.0-20.0 Serum Glucose 150 H 74-106 mg/dL Calcium Level 9.6 8.7-10.4 mg/dL Total Bilirubin 0.8 0.2-1.0 mg/dL Aspartate Amino Transferase (AST) 27 13-40 U/L Alanine Aminotransferase (ALT) 28 7-40 U/L Alkaline Phosphatase 118 H 46-116 U/L Lactate Dehydrogenase 271 H 120-246 U/L C-Reactive Protein High Sensitivity 1.38 H <1.0 mg/dL Total Protein 6.7 5.7-8.2 g/dL Albumin 4.0 3.2-4.8 g/dL Hemoglobin A1c 7.9 H <5.7 % A1C Troponin I High Sensitivity 831 *H </=54 ng/L Test 11/08/24 03:00 11/08/24 00:40 11/08/24 00:28 11/08/24 00:04 Range/Units Urine Color Yellow Yellow Urine Clarity Clear Clear Urine pH 5.0 5.0-9.0 Urine Specific [place] 1.016 1.001-1.035 Urine Protein Trace H Negative Urine Ketones Negative Negative Urine Blood 1+ H Negative /uL Urine Nitrite Negative Negative Urine Bilirubin Negative Negative Urine Urobilinogen Normal Negative mg/dL Urine Leukocyte Esterase Trace Negative /uL Urine RBC 30 0 - 3 /hpf Urine WBC 5 0 - 3 /hpf Urine Squamous Epithelial Cells None seen <5 /hpf Urine Bacteria None seen None Seen /hpf Urine Mucus Few None Seen Urine Glucose Normal Normal mg/dL Influenza Type A Antigen Negative Negative Influenza Type B Antigen Negative Negative SARS-CoV-2 Antigen (Rapid) Negative NEGATIVE Blood Gas Specimen Type Arterial Blood Gas Sample Site Right radial Blood Gas Patient Temperature 37.0 Arterial Blood Date Drawn [id number] Arterial Blood pH 7.480 H 7.350-7.450 Arterial Blood Partial Pressure CO2 33.3 L 35.0-48.0 mmHg Arterial Blood Partial Pressure O2 78.3 L 83.0-108.0 mmHg Arterial Blood HCO3 24.2 21.0-28.0 mmol/L Arterial Blood Oxygen Saturation 95.3 94.0-98.0 % Arterial Blood Base Excess 1.4 -2.0-3.0 mmol/L Arterial Blood Oxyhemoglobin 94.2 94.0-98.0 % Arterial Blood Carboxyhemoglobin 0.8 0.5-1.5 % Arterial Blood Methemoglobin 0.4 0.0-1.5 % Ayush Test Modified Blood Gas Total Hemoglobin 14.90 13.5-17.5 g/dL Blood Gas Modality Nasal cannula FiO2 % 28.0 D-Dimer, Quantitative 2.47 H 0.0-0.49 mg/L FEU Magnesium Level 2.1 1.6-2.6 mg/dL B-Type Natriuretic Peptide 1263.17 0-100 pg/mL Assessment Acute on chronic decompensated HFrEF, NYHA Class III-IV Ischemic cardiomyopathy with an EF of 10% Severe pulmonary hypertension Bilateral pneumonia Hypertension Dyslipidemia Insulin-dependent diabetes mellitus, HgbA1C 7.9% HX of CVAs x2 Plan/Recommendation (Dr. Rhodes) The patient presents with an acute exacerbation of CHF and reports undergoing a recent cardiac catheterization without knowledge of findings this past month. Obtain records from [facility] in [place], [place]. In the meantime, continue with a transthoracic echocardiogram to evaluate cardiac function. Continue single-antiplatelet therapy and NOAC therapy with Eliquis for unknown diagnosis. Continue lipid lowering agent. Continue preload and afterload reduction, strict I&Os, daily weight, and fluid restriction. Initiate GDMT for CHF and uptitrate as tolerated. No invasive cardiac workup is indicated at this time. Monitor ECG changes closely and notify. Chest pain protocol. ABX therapy per primary care team. Strongly counseled on medical compliance. Thank you for allowing us to participate in this patient's care. Please call if you have any questions or concerns. This medical document was created using an electronic medical record system with voice recognition software and computerized dictation system. Although this document has been carefully reviewed, there might still be some phonetic and ty pographical errors. Occasional wrong-word or ``sound-alike substitutions may have occurred due to the inherent limitations of voice recognition software. These areas are purely typographical due to imperfections of the software programs and do not reflect any compromise in the patient's medical care. Please read the chart carefully and recognize, using context, where these sub stitutions have occurred. Plan discussed with: Patient, Other NYHA Physical activity limitations: Class3(Marked) ordinary (activity causes symtoms) Date of Service: Nov 08, 2024 Billing Provider: CORY DOVE Cardiology Common Codes: [id number] INP/OBS CARE (High) MIGUEL RHODES MD 11/08/24 1717: Allergies: Coded Allergies: No Known Drug Allergy (Verified Allergy, Unknown, 11/08/24) Home Meds Reported Medications Clopidogrel Bisulfate (CLOPIDOGREL) 75 Mg Tab, 75 MG PO DAILY, TAB 11/08/24 Apixaban Base (ELIQUIS) 5 Mg Tab, 5 MG PO BID, TAB 11/08/24 Atorvastatin Calcium (ATORVASTATIN CALCIUM) 80 Mg Tab, 80 MG PO DAILY, TAB 11/08/24 Furosemide (Furosemide) 40 Mg Tab, 40 MG PO DAILY 11/08/24 Isosorbide Dinitrate (Isosorbide Dinitrate) 30 Mg Tab, 30 MG PO DAILY, TAB 11/08/24 Pioglitazone Hydrochloride (ACTOS TABLET) 30 Mg Tb, 1 TAB PO DAILY, TAB 11/08/24 Losartan Potassium (Losartan Potassium) 25 Mg Tab, 25 MG PO DAILY, MG 11/08/24 Metoprolol Succinate (Toprol Xl) 25 Mg Tab, 25 MG PO DAILY, TAB 11/08/24 Plan/Recommendation pt is very poor historian, has end stage HF, has no idea of his treatment at [facility]. on triplle therapy. very high risk for [place], , obtain records if feasible , but may not be diurese for now Plan discussed with: Patient DOVE,CORY SWENSON Nov 08, 2024 11:51 MIGUEL RHODES MD Nov 08, 2024 17:17
[2024-11-08 11:56] LABS: Triglycerides 95 mg/dL (< 150)
[2024-11-08 11:57] LABS: LDL Cholesterol 68 mg/dL (< 100)
[2024-11-08 11:58] LABS: HDL Cholesterol 47 mg/dL (40-59)
[2024-11-08 11:59] LABS: Cholesterol 131 mg/dL (< 200)
[2024-11-08 12:09] LABS: Amphetamine Screen, Urine Neg (NEGATIVE); Benzodiazephine Screen, Urine Neg (NEGATIVE)
[2024-11-08 12:10] LABS: Opiate Scree,Urine Neg (NEGATIVE); Phencyclidine Screen, Urine Neg (NEGATIVE)
[2024-11-08] MEDS: APIXABAN 5 MG TAB PO ONE (12:10)
[2024-11-08] MEDS: ASPirin 81 mg TAB PO ONE (12:10)
[2024-11-08 12:11] LABS: Barbiturate Scree,Urine Neg (NEGATIVE); Cocaine Screen, Urine Neg (NEGATIVE)
[2024-11-08] MEDS: METOPROLOL SUCCINATE XL 50 MG TAB PO ONE (12:12)
[2024-11-08 12:17] LABS: Cannabinoid Screen, Urine Neg (NEGATIVE)
[2024-11-08] MEDS: levoFLOXacin 250 MG TAB PO ONE (12:37)
--- NOTE | 2024-11-08 13:38 | DVHPNRES ---
Progress Note Date Seen: Nov 08, 2024 Resident Creating Document: ALBARO BRYSON RESIDENT Medical Necessity Reason Pt with a Central, PICC or Fol: No Subjective Review of Systems Patient is a 64-year-old male with a past medical history of coronary artery disease s/p CABG, CVA x2, type 2 diabetes mellitus came to the ED with a chief complaint of worsening shortness of breath and chest pain. 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 Since the last 3-4 days he reports of worsening shortness of breath associated with orthopnea and PND. Patient also complains of cough associated with yellowish green sputum and chest pain which he described pressure-like sensation across the chest nonradiating, occurred at rest. On arrival to the ER 12 lead ECG was done which showed no evidence of acute ST segment or T-wave changes with the patient had changes suggestive of left ventricular hypertrophy and atrial enlargement. Troponins were elevated in the 800s. Patient reports that he was admitted around [place] in [place] for similar episode of chest pain and worsening shortness of breath. Past surgical history: CABG in 2008 Social history: Patient denies smoking, alcohol, drug use Home medications: Metoprolol succinate 25 mg, losartan 25 mg, Eliquis 5 mg b.i.d., clopidogrel 75 mg, aspirin 81 mg, atorvastatin 80 mg, isosorbide dinitrate 30 mg Review of systems Patient reports feeling better and reports mild chest pressure. Shortness of breath has improved on oxygen. Denies palpitations, diaphoresis,, vomiting, abdominal pain. Objective vital signs Vital Sign Date Time Temp Pulse Resp B/P (MAP) Pulse Ox O2 Delivery O2 Flow Rate FiO2 11/08/24 12:12 87 98/64 11/08/24 12:00 28 95 11/08/24 08:25 Nasal Cannula* 2 28 11/08/24 08:22 97.8 97.8 Total Intake and Output 11/07/24 11/07/24 11/08/24 15:00 23:00 07:00 Output Total 225 ml Balance -225 ml medications Current Medications Medications Dose Ordered Sig/Angela Route Start Time Stop Time Status Last Admin Dose Admin Furosemide 40 mg DAILY IV 11/08/24 10:00 11/08/24 10:47 40 MG Diagnostic Test (Pha) 1 strip ACHS 11/08/24 07:00 11/08/24 11:30 1 STRIP Insulin Human Regular ACHS SC 11/08/24 07:00 11/08/24 06:47 2 UNITS Dextrose 50 ml UD PRN IV 11/08/24 02:45 Sodium Chloride 10 ml Q8HR IV 11/08/24 06:00 11/08/24 05:41 10 ML Ondansetron HCl 4 mg Q4HP PRN IV 11/08/24 02:45 Acetaminophen 650 mg Q6HP PRN PO 11/08/24 02:45 Nitroglycerin 0.4 mg Q5MINP PRN SL 11/08/24 03:00 Morphine Sulfate 2 mg Q30M PRN IV 11/08/24 03:00 Ipratropium [place] 0.5 mg Q4HPRN PRN NEB 11/08/24 05:30 11/08/24 05:35 0.5 MG Albuterol 2.5 mg Q4HPRN PRN NEB 11/08/24 05:30 11/08/24 05:35 2.5 MG Atorvastatin Calcium 80 mg HS PO 11/08/24 22:00 Apixaban 5 mg BID PO 11/08/24 22:00 Aspirin 81 mg DAILY PO 11/09/24 10:00 Metoprolol Succinate 25 mg DAILY PO 11/09/24 10:00 Levofloxacin/ Dextrose 150 ml @ 100 mls/hr DAILY IV 11/09/24 10:00 Examination Physical Examination Constitutional: Patient was alert and oriented to time, place and person does not appear to be in acute respiratory distress Gen - no pallor, no icterus, no cyanosis, no clubbing, no LAD, 2+ bilateral pitting pedal edema. Skin - Patients skin is warm and dry.. HEENT - normocephalic, atraumatic, moist mucous membranes. Neck - full ROM, no LAD, jugular venous distention seen to the middle 3rd of the SCM Pulmonary - B/L decreased breath sounds in the lower lobes with the associated inspiratory course crackles. No wheezing cardiovascular - regular S1,S2 heard. no murmurs heard. GI - soft abdomen without tenderness to palpation . no hepatospleenomegaly. Bowel sounds normoactive Neurological -Bilateral upper extremity strength 5/5, bilateral lower extremity strength 5/5, no facial droop, normal speech, no tremor, no sensory deficiets. laboratory and microbiology Laboratory Tests 11/08/24 05:51 Test 11/08/24 05:51 Range/Units Serum Glucose 150 H 74-106 mg/dL Problem List/Assessment/Plan Problem List/Assessment/Plan Assessment Acute hypoxic respiratory failure Acute exacerbation of heart failure with reduced ejection fraction, NYHA class 3 Coronary artery disease s/p CABG Ischemic cardiomyopathy Paroxysmal atrial fibrillation Suspected community-acquired pneumonia likely due to Gram-negative versus atypical bacteria Bilateral pleural effusion Uncontrolled type 2 diabetes mellitus H/o Stroke Chest x-ray shows interstitial pulmonary edema with bilateral blunting of the CP angles CT chest angio 1. No evidence of pulmonary arterial thromboembolism. 2. No evidence of aortic aneurysm 3. Smooth interlobular septal thickening is right upper lobe. 4. Patchy areas of consolidation and collapse are noted in both lung bases. 5. Moderate bilateral pleural effusion is seen causing passive atelectasis of the underlying lung parenchyma. Plan - started on GDMT metoprolol succinate 25 mg , spironolactone 12.5 mg, losartan 4.5 mg - furosemide 40 mg b.i.d. IV - aspirin plus Plavix - apixaban 2.5 mg b.i.d. as per Cardiology - levofloxacin 750 mg IV daily -IR consulted for draining the bilateral pleural effusion, but according to the physician not enough fluid to drain at this time - started on insulin Lantus 12 units hs and mild insulin sliding scale Goals of care discussed with the patient for over 25 minutes. Full code Plan discussed with Dr. Mobley Plan discussed with: Patient My Orders My Orders Orders - ALBARO BRYSON Procedure Category Date Status Time Atorvastatin (Lipitor) PHA 11/08/24 In Process 22:00 Apixaban (Eliquis) PHA 11/08/24 In Process 22:00 Aspirin Tablet PHA 11/09/24 In Process 10:00 Metoprolol Xl PHA 11/09/24 In Process Succinate (Toprol Xl) 10:00 * Radiologist Consult CONS 11/08/24 Transmitted 10:53 Levofloxacin 750mg PHA 11/09/24 In Process (Levaquin) 10:00 Date of Service: Nov 08, 2024 Billing Provider: KIM MOBLEY MD Common Visit Codes: [id number] INP/OBS CARE(HIGH) ALBARO BRYSON RESIDENT Nov 08, 2024 13:38 KIM MOBLEY MD Nov 08, 2024 21:31
--- NOTE | 2024-11-08 15:22 | ECG ---
[facility] Test Date: 2024-11-08 Test Time: 02:49:42 Pat Name: LOGAN VALDERRAMA Department: ED Room: 0276T Gender: M Percher: OSMANY : 1960 Requested By: NILES COELLO Order Number: [id number] Reading MD: Donald Marte Measurements Intervals [place] Rate: 98 P: 62 IA: 151 QRS: 116 QRSD: 142 T: -71 QT: 392 QTc: 501 Interpretive Statements Sinus tachycardia Paired ventricular premature complexes Nonspecific intraventricular conduction delay Repol abnrm suggests ischemia, diffuse leads Electronically Signed On 11-10-2024 15:57:27 PST by Donald Marte Please click the below link to view image of tracing.
--- NOTE | 2024-11-08 16:05 | DVHSR ---
APPROVED REPORT EXAM: Two-dimensional and M-mode echocardiogram with Doppler and color Doppler. Blood Pressure: 106/70 mmHg INDICATION chf exacerbation, unspecified RISK FACTORS Height: 5'7, Weight: 175 DIMENSIONS LVDd6.4 (3.8-5.7cm)LA (2D)4.6 (1.9-4.0cm)Aortic Root3.3 (2.0-3.7cm) LVDs6.2 (2.5-4.0cm)LA (MM) (1.9-4.0cm)Aortic Cusp Exc1.5 (1.5-2.0cm) EF (%) 7.0 (55-70%)Rt. Atrium4.5 (1.9-4.0cm)Asc. Aorta3.5 cm IVSd0.9 (0.7-1.1cm)RV (D)4.6 (1.8-2.4cm) PWd0.8 (0.7-1.1cm) Mitral Valve MitralMitral Stenosis E wave1.25m/sMV Mean GR.mmHg A wave0.35m/sMV Peak GR.46mmHg E/A ratio3.62D MVAcm2 DECEL [id number] 1/2 Tim[place] Aortic Valve Aortic ValveAortic Stenosis V10.66m/Cha Mean GR.2mmHg V20.89m/Cha Peak GR.3mmHg LVOT Diameter2.2 (1.8-2.4cm)Doppler AVA2.82cm2 Pulmonic Valve V20.60m/s Tricuspid Valve TR Velocity3.82m/s [id number] Conclusion severe dilated LV end stage CHF LVEF 10% by viusal estimate RV dysfunctio noted biatrial enlargement moderate to severe mitral regurg moderat tricuspid regurg
[2024-11-08] MEDS ORDERED: FURO40TA4 PO (16:35)
[2024-11-08] MEDS ORDERED: ISOS1TAB37 PO (16:35)
[2024-11-08] MEDS ORDERED: CLOP75TA70 PO (16:35)
[2024-11-08] MEDS ORDERED: ATOR-47 PO (16:35)
[2024-11-08] MEDS ORDERED: LOSA-533 PO (16:35)
[2024-11-08] MEDS ORDERED: PIO30T PO (16:35)
[2024-11-08] MEDS ORDERED: APIX5TAB PO (16:35)
[2024-11-08] MEDS ORDERED: METO25TA36 PO (16:35)
[2024-11-08] MEDS ORDERED: ATORVASTATIN 20 MG TAB PO SCH (22:00)
[2024-11-08] MEDS: APIXABAN 5 MG TAB PO SCH (22:00)
[2024-11-08] MEDS ORDERED: APIXABAN 5 MG TAB PO SCH (22:00)
[2024-11-08] MEDS: ATORVASTATIN 20 MG TAB PO SCH (22:01)
[2024-11-08] MEDS: INSULIN LANTUS (GLARGINE) 1 /0.01ml (100units/ml) SC SCH (22:03)
[2024-11-08] MEDS: HYDROcodone-ACET 7.5/325MG TAB PO ONE (23:30)
[2024-11-09] VITALS (11 sets, daily range): BP systolic 93–119; BP diastolic 65–81; PULSE 74–96; RESP 16–20; TEMP 97.6–98.7; O2SAT 92–100
[2024-11-09] MEDS ORDERED: HYDROcodone-ACET 7.5/325MG TAB PO ONE (01:00)
[2024-11-09 07:25] LABS: Alanine Aminotransferase 25 U/L (7-40); Alkaline Phosphatase 116 U/L (46-116); Anion Gap 7 (5-15); Aspartate Aminotransferase 20 U/L (13-40); BUN/Creatinine Ratio 16.7 (10.0-20.0); Blood Urea Nitrogen 21 mg/dL (9-23); Carbon Dioxide 30 mmol/L (20-31); Chloride 100 mmol/L (98-107); Potassium 3.9 mmol/L (3.5-5.1); Sodium 137 mmol/L (136-145)
[2024-11-09 07:26] LABS: Albumin 4.2 g/dL (3.2-4.8); Bilirubin, Total 0.8 mg/dL (0.2-1.0)
[2024-11-09 07:27] LABS: Basophils # (auto) 0 10 ^3/uL (0-0.2); Basophils % (auto) 0.2 % (0.0-2.0); Eosinophils # (auto) 0 10 ^3/uL (0-0.8); Eosinophils % (auto) 0.5 % (0.0-7.0); Glucose 132 mg/dL (74-106); Hematocrit 43.5 % (41.0-53.0); Hemoglobin 14.2 g/dL (13.5-17.5); Lymphocytes # (auto) 1.1 10 ^3/uL (0.4-5.4); Lymphocytes % (auto) 17.4 % (10.0-50.0); Mean Corpuscular Hemoglobin 28.5 pg (28.0-32.0); Mean Corpuscular Hgb Conc. 32.7 g/dL (32.0-36.0); Mean Corpuscular Volume 87.3 fL (80.0-100.0); Monocytes # (auto) 0.4 10 ^3/uL (0-1.3); Monocytes % (auto) 7.1 % (0.0-12.0); Neutrophils # (auto) 4.5 10 ^3/uL (1.6-8.6); Neutrophils % (auto) 74.8 % (37.0-80.0); Nucleated Red Blood Cells % 0.1 %; Platelet Count (auto) 172 10^3/uL (140-450); Red Blood Cells 4.98 10^6/uL (4.5-5.90); Red Cell Distribution Width 14.8 % (11.8-14.3); Total Protein 6.7 g/dL (5.7-8.2)
[2024-11-09] MEDS: levoFLOXacin 750MG 150 ML IV SCH (09:46)
[2024-11-09] MEDS: EMPAGLIFLOZIN 10 MG TAB PO SCH (09:47)
[2024-11-09] MEDS: CLOPIDOGREL BISULFATE 75 MG TAB PO SCH (09:47)
[2024-11-09] MEDS: LOSARTAN POTASSIUM 25 MG TAB PO SCH (09:48)
[2024-11-09] MEDS: METOPROLOL SUCCINATE XL 50 MG TAB PO SCH (09:48)
[2024-11-09] MEDS: SPIRONOLACTONE 25 MG TAB PO SCH (09:49)
[2024-11-09] MEDS ORDERED: ASPirin 81 mg TAB PO SCH (10:00)
--- NOTE | 2024-11-09 13:22 | DVHPN2 ---
Progress Note Date Seen: Nov 09, 2024 Medical Necessity Reason Pt with a Central, PICC or Fol: No Subjective Patient reports: Feels better Other Systems: no complaints pt complains of his care in [facility] but lives there Objective vital signs Vital Sign Date Time Temp Pulse Resp B/P (MAP) Pulse Ox O2 Delivery O2 Flow Rate FiO2 11/09/24 09:48 115/72 11/09/24 09:48 79 11/09/24 08:32 98.6 16 99 98.6 11/09/24 08:10 Room Air* 0 21 Total Intake and Output 11/08/24 11/08/24 11/09/24 15:00 23:00 07:00 Intake Total 40 ml 400 ml Output Total 100 ml Balance 40 ml 300 ml medications Current Medications Medications Dose Ordered Sig/Angela Route Start Time Stop Time Status Last Admin Dose Admin Diagnostic Test (Pha) 1 strip ACHS 11/08/24 07:00 11/09/24 11:26 1 STRIP Insulin Human Regular ACHS SC 11/08/24 07:00 11/09/24 11:31 3 UNITS Dextrose 50 ml UD PRN IV 11/08/24 02:45 Sodium Chloride 10 ml Q8HR IV 11/08/24 06:00 11/09/24 06:17 10 ML Ondansetron HCl 4 mg Q4HP PRN IV 11/08/24 02:45 Acetaminophen 650 mg Q6HP PRN PO 11/08/24 02:45 Nitroglycerin 0.4 mg Q5MINP PRN SL 11/08/24 03:00 Morphine Sulfate 2 mg Q30M PRN IV 11/08/24 03:00 Ipratropium [place] 0.5 mg Q4HPRN PRN NEB 11/08/24 05:30 11/08/24 22:47 0.5 MG Albuterol 2.5 mg Q4HPRN PRN NEB 11/08/24 05:30 11/08/24 22:47 2.5 MG Atorvastatin Calcium 80 mg HS PO 11/08/24 22:00 11/08/24 22:01 80 MG Metoprolol Succinate 25 mg DAILY PO 11/09/24 10:00 11/09/24 09:48 25 MG Levofloxacin/ Dextrose 150 ml @ 100 mls/hr DAILY IV 11/09/24 10:00 11/09/24 09:46 100 MLS/HR Empaglifozin 10 mg DAILY PO 11/09/24 10:00 11/09/24 09:47 10 MG Spironolactone 12.5 mg DAILY PO 11/09/24 10:00 11/09/24 09:49 12.5 MG Losartan Potassium 12.5 mg DAILY PO 11/09/24 10:00 11/09/24 09:48 12.5 MG Apixaban 2.5 mg BID PO 11/08/24 22:00 11/09/24 09:49 2.5 MG Clopidogrel Bisulfate 75 mg DAILY PO 11/09/24 10:00 11/09/24 09:47 75 MG Furosemide 40 mg BIDD IV 11/08/24 18:00 11/09/24 06:24 40 MG Insulin Glargine 12 units HS SC 11/08/24 22:00 11/08/24 22:03 12 UNITS Examination: GENERAL:Abnormal, HEENT:Abnormal, LUNGS:Abnormal, CVS:Abnormal, ABDOMEN:Abnormal laboratory and microbiology Laboratory Tests 11/09/24 06:17 Test 11/09/24 06:17 Range/Units Serum Glucose 132 H 74-106 mg/dL Problem List/Assessment/Plan Problem List/Assessment/Plan severe chf nyha class III severe ischemic cardiomyopathy cabg cad nstemi obesity HTN HL CKD iv lasix cont GDMT hx of cabg obtain records if feasible pt needs close fu with his cards in [place], consider ICD in future Plan discussed with: Patient Date of Service: Nov 09, 2024 Billing Provider: MIGUEL RHODES MD Common Visit Codes: NOT BILLABLE MIGUEL RHODES MD Nov 09, 2024 13:22
--- NOTE | 2024-11-09 15:09 | DVHPNRES ---
Progress Note Date Seen: Nov 09, 2024 Resident Creating Document: ALBARO BRYSON RESIDENT Medical Necessity Reason Pt with a Central, PICC or Fol: No Subjective Review of Systems Review of systems Patient reports feeling better and reported an episode of chest pressure at night Shortness of breath has improved on oxygen. Denies palpitations, diaphoresis,, vomiting, abdominal pain. Put on fluid restrictions and strict I/O Objective vital signs Vital Sign Date Time Temp Pulse Resp B/P (MAP) Pulse Ox O2 Delivery O2 Flow Rate FiO2 11/09/24 12:32 98.1 74 16 119/77 (91) 98 98.1 11/09/24 08:10 Room Air* 0 21 Total Intake and Output 11/08/24 11/08/24 11/09/24 15:00 23:00 07:00 Intake Total 40 ml 400 ml Output Total 100 ml Balance 40 ml 300 ml medications Current Medications Medications Dose Ordered Sig/Angela Route Start Time Stop Time Status Last Admin Dose Admin Diagnostic Test (Pha) 1 strip ACHS 11/08/24 07:00 11/09/24 11:26 1 STRIP Insulin Human Regular ACHS SC 11/08/24 07:00 11/09/24 11:31 3 UNITS Dextrose 50 ml UD PRN IV 11/08/24 02:45 Sodium Chloride 10 ml Q8HR IV 11/08/24 06:00 11/09/24 14:15 10 ML Ondansetron HCl 4 mg Q4HP PRN IV 11/08/24 02:45 Acetaminophen 650 mg Q6HP PRN PO 11/08/24 02:45 Nitroglycerin 0.4 mg Q5MINP PRN SL 11/08/24 03:00 Morphine Sulfate 2 mg Q30M PRN IV 11/08/24 03:00 Ipratropium [place] 0.5 mg Q4HPRN PRN NEB 11/08/24 05:30 11/08/24 22:47 0.5 MG Albuterol 2.5 mg Q4HPRN PRN NEB 11/08/24 05:30 11/08/24 22:47 2.5 MG Atorvastatin Calcium 80 mg HS PO 11/08/24 22:00 11/08/24 22:01 80 MG Metoprolol Succinate 25 mg DAILY PO 11/09/24 10:00 11/09/24 09:48 25 MG Empaglifozin 10 mg DAILY PO 11/09/24 10:00 11/09/24 09:47 10 MG Spironolactone 12.5 mg DAILY PO 11/09/24 10:00 11/09/24 09:49 12.5 MG Losartan Potassium 12.5 mg DAILY PO 11/09/24 10:00 11/09/24 09:48 12.5 MG Apixaban 2.5 mg BID PO 11/08/24 22:00 11/09/24 09:49 2.5 MG Clopidogrel Bisulfate 75 mg DAILY PO 11/09/24 10:00 11/09/24 09:47 75 MG Furosemide 40 mg BIDD IV 11/08/24 18:00 11/09/24 06:24 40 MG Insulin Glargine 12 units HS SC 11/08/24 22:00 11/08/24 22:03 12 UNITS Piperacillin Sod/ Tazobactam Sod 100 ml @ 25 mls/hr Q8HR IV 11/09/24 22:00 UNV Examination Physical Examination Constitutional: Patient was alert and oriented to time, place and person does not appear to be in acute respiratory distress Gen - no pallor, no icterus, no cyanosis, no clubbing, no LAD, 2+ bilateral pitting pedal edema. Skin - Patients skin is warm and dry.. HEENT - normocephalic, atraumatic, moist mucous membranes. Neck - full ROM, no LAD, jugular venous distention seen to the middle 3rd of the SCM Pulmonary - B/L decreased breath sounds in the lower lobes with the associated inspiratory course crackles. No wheezing cardiovascular - regular S1,S2 heard. no murmurs heard. GI - soft abdomen without tenderness to palpation . no hepatospleenomegaly. Bowel sounds normoactive Neurological -Bilateral upper extremity strength 5/5, bilateral lower extremity strength 5/5, no facial droop, normal speech, no tremor, no sensory deficiets. laboratory and microbiology Laboratory Tests 11/09/24 06:17 Test 11/09/24 06:17 Range/Units Serum Glucose 132 H 74-106 mg/dL Microbiology Date/Time Source Procedure Growth Status 11/08/24 18:45 Nose MRSA Screen - Final Complete Problem List/Assessment/Plan Problem List/Assessment/Plan Assessment Acute hypoxic respiratory failure Acute exacerbation of heart failure with reduced ejection fraction, NYHA class 3 Coronary artery disease s/p CABG Ischemic cardiomyopathy Paroxysmal atrial fibrillation Suspected community-acquired pneumonia likely due to Gram-negative versus atypical bacteria Bilateral pleural effusion Uncontrolled type 2 diabetes mellitus H/o Stroke Chest x-ray shows interstitial pulmonary edema with bilateral blunting of the CP angles CT chest angio 1. No evidence of pulmonary arterial thromboembolism. 2. No evidence of aortic aneurysm 3. Smooth interlobular septal thickening is right upper lobe. 4. Patchy areas of consolidation and collapse are noted in both lung bases. 5. Moderate bilateral pleural effusion is seen causing passive atelectasis of the underlying lung parenchyma. ECHO shows severe dilated LV end stage CHF LVEF 10% by viusal estimate RV dysfunctio noted biatrial enlargement Plan - started on GDMT metoprolol succinate 25 mg , spironolactone 12.5 mg, losartan 4.5 mg - furosemide 40 mg b.i.d. IV - aspirin plus Plavix - atorvastatin - apixaban 2.5 mg b.i.d. as per Cardiology - levofloxacin stopped, patient started on Zosyn -IR consulted for draining the bilateral pleural effusion, but according to the physician not enough fluid to drain at this time - started on insulin Lantus 12 units hs and mild insulin sliding scale - as per cardiology continue Lasix and GDMT, f/u with cardiology in [place] and may consider ICD in future Goals of care discussed with the patient for over 21 minutes. Full code Plan discussed with Dr. Brunner Plan discussed with: Patient My Orders My Orders Orders - ALBARO BRYSON RESIDENT Procedure Category Date Status Time Insulin Lantus PHA 11/08/24 In Process (Glargine) (Lantus) 22:00 Strict I & O [place]RA[place] 11/09/24 In Process 08:20 Mrsa Screen DESIRAE 11/09/24 Uncollected 10:07 Piperacillin-Tazob PHA 11/09/24 Logged 3.375gm (Zosyn 3.375g 22:00 Date of Service: Nov 09, 2024 Billing Provider: CATRACHITO BRUNNER MD Common Visit Codes: [id number] INP/OBS CARE(HIGH) ALBARO BRYSON RESIDENT Nov 09, 2024 15:09 CATRACHITO BRUNNER MD Nov 09, 2024 23:10
[2024-11-09] MEDS: HYDROcodone-ACET 7.5/325MG TAB PO ONE (20:40)
[2024-11-09] MEDS: PIPERACILLIN-TAZOB 3.375GM 100 ML IV SCH (20:51)
[2024-11-10] VITALS (14 sets, daily range): BP systolic 91–103; BP diastolic 60–72; PULSE 57–103; RESP 16–24; TEMP 97.6–98; O2SAT 89–100
[2024-11-10 07:33] LABS: Chloride 103 mmol/L (98-107); Potassium 4.2 mmol/L (3.5-5.1); Sodium 139 mmol/L (136-145)
[2024-11-10 07:34] LABS: Anion Gap 6 (5-15); Calcium 10.1 mg/dL (8.7-10.4); Carbon Dioxide 30 mmol/L (20-31)
[2024-11-10 07:39] LABS: BUN/Creatinine Ratio 13.2 (10.0-20.0); Blood Urea Nitrogen 16 mg/dL (9-23); Glucose 90 mg/dL (74-106)
[2024-11-10 07:51] LABS: Basophils # (auto) 0 10 ^3/uL (0-0.2); Basophils % (auto) 0.2 % (0.0-2.0); Eosinophils # (auto) 0.1 10 ^3/uL (0-0.8); Hematocrit 44.1 % (41.0-53.0); Hemoglobin 14.4 g/dL (13.5-17.5); Lymphocytes # (auto) 1.4 10 ^3/uL (0.4-5.4); Lymphocytes % (auto) 17.3 % (10.0-50.0); Mean Corpuscular Hemoglobin 28.6 pg (28.0-32.0); Mean Corpuscular Hgb Conc. 32.7 g/dL (32.0-36.0); Mean Corpuscular Volume 87.3 fL (80.0-100.0); Monocytes # (auto) 0.6 10 ^3/uL (0-1.3); Monocytes % (auto) 7.1 % (0.0-12.0); Neutrophils # (auto) 5.9 10 ^3/uL (1.6-8.6); Neutrophils % (auto) 74.4 % (37.0-80.0); Nucleated Red Blood Cells % 0.1 %; Platelet Count (auto) 179 10^3/uL (140-450); Red Blood Cells 5.05 10^6/uL (4.5-5.90); Red Cell Distribution Width 14.9 % (11.8-14.3); White Blood Cell 7.9 10^3/uL (4.4-10.8)
--- NOTE | 2024-11-10 11:36 | DVHPN2 ---
Progress Note Date Seen: Nov 10, 2024 Medical Necessity Reason Pt with a Central, PICC or Fol: No Objective vital signs Vital Sign Date Time Temp Pulse Resp B/P (MAP) Pulse Ox O2 Delivery O2 Flow Rate FiO2 11/10/24 10:00 90/60 11/10/24 10:00 80 11/10/24 09:20 97.8 17 89 97.8 11/10/24 08:35 Nasal Cannula* 3 32 Total Intake and Output 11/09/24 11/09/24 11/10/24 15:00 23:00 07:00 Intake Total 150 ml 860 ml 210 ml Output Total 550 ml 700 ml Balance 150 ml 310 ml -490 ml medications Current Medications Medications Dose Ordered Sig/Angela Route Start Time Stop Time Status Last Admin Dose Admin Diagnostic Test (Pha) 1 strip ACHS 11/08/24 07:00 11/10/24 05:48 1 STRIP Insulin Human Regular ACHS SC 11/08/24 07:00 11/09/24 21:24 3 UNITS Dextrose 50 ml UD PRN IV 11/08/24 02:45 Sodium Chloride 10 ml Q8HR IV 11/08/24 06:00 11/10/24 05:48 10 ML Ondansetron HCl 4 mg Q4HP PRN IV 11/08/24 02:45 Acetaminophen 650 mg Q6HP PRN PO 11/08/24 02:45 Nitroglycerin 0.4 mg Q5MINP PRN SL 11/08/24 03:00 Morphine Sulfate 2 mg Q30M PRN IV 11/08/24 03:00 Ipratropium [place] 0.5 mg Q4HPRN PRN NEB 11/08/24 05:30 11/08/24 22:47 0.5 MG Albuterol 2.5 mg Q4HPRN PRN NEB 11/08/24 05:30 11/08/24 22:47 2.5 MG Atorvastatin Calcium 80 mg HS PO 11/08/24 22:00 11/09/24 20:38 80 MG Metoprolol Succinate 25 mg DAILY PO 11/09/24 10:00 11/09/24 09:48 25 MG Empaglifozin 10 mg DAILY PO 11/09/24 10:00 11/10/24 09:59 10 MG Spironolactone 12.5 mg DAILY PO 11/09/24 10:00 11/09/24 09:49 12.5 MG Losartan Potassium 12.5 mg DAILY PO 11/09/24 10:00 11/09/24 09:48 12.5 MG Apixaban 2.5 mg BID PO 11/08/24 22:00 11/10/24 09:53 2.5 MG Clopidogrel Bisulfate 75 mg DAILY PO 11/09/24 10:00 11/10/24 09:54 75 MG Furosemide 40 mg BIDD IV 11/08/24 18:00 11/09/24 06:24 40 MG Insulin Glargine 12 units HS SC 11/08/24 22:00 11/09/24 21:27 12 UNITS Piperacillin Sod/ Tazobactam Sod 100 ml @ 25 mls/hr Q8HR IV 11/09/24 22:00 11/10/24 05:41 25 MLS/HR Examination: GENERAL:Abnormal, HEENT:Abnormal, LUNGS:Abnormal, CVS:Normal, CVS:Abnormal, ABDOMEN:Abnormal laboratory and microbiology Laboratory Tests 11/10/24 06:48 Test 11/10/24 06:48 Range/Units Serum Glucose 90 74-106 mg/dL Microbiology Date/Time Source Procedure Growth Status 11/08/24 18:45 Nose MRSA Screen - Final Complete Problem List/Assessment/Plan Problem List/Assessment/Plan severe chf nyha class III severe ischemic cardiomyopathy cabg cad nstemi obesity HTN HL CKD iv lasix cont GDMT hx of cabg obtain records if feasible pt needs close fu with his cards in [place], consider ICD in future dc home when stable pt has poor prognosis Plan discussed with: Patient Date of Service: Nov 10, 2024 Billing Provider: MIGUEL RHODES MD Common Visit Codes: NOT BILLABLE MIGUEL RHODES MD Nov 10, 2024 11:36
--- NOTE | 2024-11-10 11:39 | ECG ---
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
--- NOTE | 2024-11-10 14:20 | DVHPNRES ---
Progress Note Date Seen: Nov 10, 2024 Resident Creating Document: ZECHARIAH MALHOTRA RESIDENT Medical Necessity Reason Pt with a Central, PICC or Fol: No Subjective Review of Systems Review of systems Patient reports feeling better, no chest pain Shortness of breath has improved on oxygen. Denies palpitations, diaphoresis,, vomiting, abdominal pain. Put on fluid restrictions and strict I/O Objective vital signs Vital Sign Date Time Temp Pulse Resp B/P (MAP) Pulse Ox O2 Delivery O2 Flow Rate FiO2 11/10/24 10:00 100 Nasal Cannula* 3 32 11/10/24 10:00 90/60 11/10/24 10:00 80 11/10/24 09:20 97.8 17 97.8 Total Intake and Output 11/09/24 11/09/24 11/10/24 15:00 23:00 07:00 Intake Total 150 ml 860 ml 210 ml Output Total 550 ml 700 ml Balance 150 ml 310 ml -490 ml medications Current Medications Medications Dose Ordered Sig/Angela Route Start Time Stop Time Status Last Admin Dose Admin Diagnostic Test (Pha) 1 strip ACHS 11/08/24 07:00 11/10/24 11:30 1 STRIP Insulin Human Regular ACHS SC 11/08/24 07:00 11/09/24 21:24 3 UNITS Dextrose 50 ml UD PRN IV 11/08/24 02:45 Sodium Chloride 10 ml Q8HR IV 11/08/24 06:00 11/10/24 13:51 10 ML Ondansetron HCl 4 mg Q4HP PRN IV 11/08/24 02:45 Acetaminophen 650 mg Q6HP PRN PO 11/08/24 02:45 Nitroglycerin 0.4 mg Q5MINP PRN SL 11/08/24 03:00 Morphine Sulfate 2 mg Q30M PRN IV 11/08/24 03:00 Ipratropium [place] 0.5 mg Q4HPRN PRN NEB 11/08/24 05:30 11/08/24 22:47 0.5 MG Albuterol 2.5 mg Q4HPRN PRN NEB 11/08/24 05:30 11/08/24 22:47 2.5 MG Atorvastatin Calcium 80 mg HS PO 11/08/24 22:00 11/09/24 20:38 80 MG Metoprolol Succinate 25 mg DAILY PO 11/09/24 10:00 11/09/24 09:48 25 MG Empaglifozin 10 mg DAILY PO 11/09/24 10:00 11/10/24 09:59 10 MG Spironolactone 12.5 mg DAILY PO 11/09/24 10:00 11/09/24 09:49 12.5 MG Losartan Potassium 12.5 mg DAILY PO 11/09/24 10:00 11/09/24 09:48 12.5 MG Apixaban 2.5 mg BID PO 11/08/24 22:00 11/10/24 09:53 2.5 MG Clopidogrel Bisulfate 75 mg DAILY PO 11/09/24 10:00 11/10/24 09:54 75 MG Furosemide 40 mg BIDD IV 11/08/24 18:00 11/09/24 06:24 40 MG Insulin Glargine 12 units HS SC 11/08/24 22:00 11/09/24 21:27 12 UNITS Piperacillin Sod/ Tazobactam Sod 100 ml @ 25 mls/hr Q8HR IV 11/09/24 22:00 11/10/24 13:51 25 MLS/HR Examination Physical Examination Constitutional: Patient was alert and oriented to time, place and person does not appear to be in acute respiratory distress Gen - no pallor, no icterus, no cyanosis, no clubbing, no LAD, 2+ bilateral pitting pedal edema. Skin - Patients skin is warm and dry.. HEENT - normocephalic, atraumatic, moist mucous membranes. Neck - full ROM, no LAD, jugular venous distention seen to the middle 3rd of the SCM Pulmonary - B/L decreased breath sounds in the lower lobes with the associated inspiratory course crackles. No wheezing cardiovascular - regular S1,S2 heard. no murmurs heard. GI - soft abdomen without tenderness to palpation . no hepatospleenomegaly. Bowel sounds normoactive Neurological -Bilateral upper extremity strength 5/5, bilateral lower extremity strength 5/5, no facial droop, normal speech, no tremor, no sensory deficiets. laboratory and microbiology Laboratory Tests 11/10/24 06:48 Test 11/10/24 06:48 Range/Units Serum Glucose 90 74-106 mg/dL Microbiology Date/Time Source Procedure Growth Status 11/08/24 18:45 Nose MRSA Screen - Final Complete Problem List/Assessment/Plan Problem List/Assessment/Plan Acute hypoxic respiratory failure Acute exacerbation of heart failure with reduced ejection fraction, NYHA class 3 Coronary artery disease s/p CABG Ischemic cardiomyopathy Paroxysmal atrial fibrillation Suspected community-acquired pneumonia likely due to Gram-negative versus atypical bacteria Bilateral pleural effusion Uncontrolled type 2 diabetes mellitus H/o Stroke H/o of LV thrombus Previous medical records: patient had a LHC in sep 2024 in [place]: 3 grafts, GALEAS LAD patent, 1 SVG OM patent, 1 SVG OM occluded and multivessel disease, patient had reduced EF 15% at that admission which previously was 35% in 2022 as well and was counseled to continue GMDT, patient was also counseled about ICD he expressed he doesn't want it. Patient is non complaint with his medications, patient had also history of LV thrombus in 2022 Chest x-ray shows interstitial pulmonary edema with bilateral blunting of the CP angles CT chest angio 1. No evidence of pulmonary arterial thromboembolism. 2. No evidence of aortic aneurysm 3. Smooth interlobular septal thickening is right upper lobe. 4. Patchy areas of consolidation and collapse are noted in both lung bases. 5. Moderate bilateral pleural effusion is seen causing passive atelectasis of the underlying lung parenchyma. ECHO shows severe dilated LV end stage CHF LVEF 10% by viusal estimate RV dysfunctio noted biatrial enlargement Plan - started on GDMT metoprolol succinate 25 mg , spironolactone 12.5 mg, losartan 4.5 mg - furosemide 40 mg b.i.d. IV - aspirin plus Plavix - atorvastatin - apixaban 2.5 mg b.i.d. as per Cardiology - levofloxacin stopped, patient started on Zosyn -IR consulted for draining the bilateral pleural effusion, but according to the physician not enough fluid to drain at this time - started on insulin Lantus 12 units hs and mild insulin sliding scale - as per cardiology continue Lasix and GDMT, f/u with cardiology in [place] and may consider ICD in future Case discussed with cardiology: patient will be treated here for pneumonia and CHF exacerbation, when is we can wean off his O2 he will be able to be DC, for now patient still have SOB, no chest pain. 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 Goals of care discussed with the patient for over 21 minutes. Full code Plan discussed with Dr. Leiva Plan discussed with: Patient, Other (rn) Date of Service: Nov 10, 2024 Billing Provider: CATRACHITO LEIVA MD Common Visit Codes: [id number] INP/OBS CARE(HIGH) ZECHARIAH MALHOTRA RESIDENT Nov 10, 2024 14:20 CATRACHITO LEIVA MD Nov 10, 2024 23:34
[2024-11-10] MEDS: MORPHINE SULFATE INJ 2 MG/ml SYRG IV PRN (16:07)
[2024-11-10] MEDS ORDERED: DOCUSATE SOD 100 MG CAP PO PRN (16:30)
[2024-11-10] MEDS ORDERED: DOCUSATE SOD 100 MG CAP PO SCH (22:00)
[2024-11-11] VITALS (11 sets, daily range): BP systolic 90–133; BP diastolic 49–86; PULSE 70–90; RESP 14–18; TEMP 98–98.3; O2SAT 92–100
[2024-11-11 06:08] LABS: Basophils # (auto) 0 10 ^3/uL (0-0.2); Basophils % (auto) 0.3 % (0.0-2.0); Eosinophils # (auto) 0.1 10 ^3/uL (0-0.8); Eosinophils % (auto) 1.4 % (0.0-7.0); Hematocrit 41.6 % (41.0-53.0); Hemoglobin 14.1 g/dL (13.5-17.5); Lymphocytes # (auto) 1.2 10 ^3/uL (0.4-5.4); Lymphocytes % (auto) 21.2 % (10.0-50.0); Mean Corpuscular Hgb Conc. 33.8 g/dL (32.0-36.0); Monocytes # (auto) 0.5 10 ^3/uL (0-1.3); Monocytes % (auto) 8.6 % (0.0-12.0); Neutrophils # (auto) 3.8 10 ^3/uL (1.6-8.6); Neutrophils % (auto) 68.5 % (37.0-80.0); Platelet Count (auto) 175 10^3/uL (140-450); Red Blood Cells 4.84 10^6/uL (4.5-5.90); White Blood Cell 5.6 10^3/uL (4.4-10.8)
[2024-11-11 06:36] LABS: Alanine Aminotransferase 17 U/L (7-40); Albumin 3.8 g/dL (3.2-4.8); Alkaline Phosphatase 100 U/L (46-116); Anion Gap 7 (5-15); Aspartate Aminotransferase 15 U/L (13-40); BUN/Creatinine Ratio 10.2 (10.0-20.0); Blood Urea Nitrogen 14 mg/dL (9-23); Calcium 9.9 mg/dL (8.7-10.4); Carbon Dioxide 30 mmol/L (20-31); Chloride 102 mmol/L (98-107); Glucose 89 mg/dL (74-106); Potassium 4.5 mmol/L (3.5-5.1); Sodium 139 mmol/L (136-145); Total Protein 6.1 g/dL (5.7-8.2)
--- NOTE | 2024-11-11 09:25 | ECG ---
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
--- NOTE | 2024-11-11 09:48 | DVH ---
EXAM: XY CHEST XRAY 1 VIEW Indication: interstitial edema, B/L pl eff., compare with previous Technique: Single frontal view of the chest was obtained Comparison: XY CHEST XRAY 1 VIEW on DOS: 11/07/24 FINDINGS: Lines and Tubes: None Lungs: Diffuse interstitial opacities. Pleura: Trace bilateral pleural effusions. No pneumothorax. Cardiomediastinal contours: Cardiomegaly. Bones: No acute osseous abnormality. IMPRESSION: No significant change compared to prior exam.
[2024-11-11] MEDS ORDERED: DOXY100C PO (15:52)
[2024-11-11] MEDS ORDERED: AUG875T PO (15:52)
[2024-11-11] MEDS ORDERED: EMPA1TAB PO (15:54)
--- NOTE | 2024-11-11 19:08 | DVHDSRES ---
Discharge Summary Date of Admission Resident Creating Document: ALBARO BRYSON RESIDENT Nov 08, 2024 at 02:51 Date of Discharge: Nov 11, 2024 Admitting Diagnosis Acute respiratory distress Chest pain Elevated D-dimer NSTEMI (non-ST elevated myocardial infarction) Acute exacerbation of congestive heart failure Wounds: none Labs/Diagnostic Data: Laboratory Results Test 11/11/24 05:41 11/11/24 05:00 11/08/24 23:36 11/08/24 10:57 POC Glucose 94 mg/dl (70-106) White Blood Count 5.6 10^3/uL (4.4-10.8) Red Blood Count 4.84 10^6/uL (4.5-5.90) Hemoglobin 14.1 g/dL (13.5-17.5) Hematocrit 41.6 % (41.0-53.0) Mean Corpuscular Volume 86.0 fL (80.0-100.0) Mean Corpuscular Hemoglobin 29.0 pg (28.0-32.0) Mean Corpuscular Hemoglobin Concent 33.8 g/dL (32.0-36.0) Red Cell Distribution Width 15.0 % (11.8-14.3) Platelet Count 175 10^3/uL (140-450) Mean Platelet Volume 9.5 fL (6.9-10.8) Neutrophils (%) (Auto) 68.5 % (37.0-80.0) Lymphocytes (%) (Auto) 21.2 % (10.0-50.0) Monocytes (%) (Auto) 8.6 % (0.0-12.0) Eosinophils (%) (Auto) 1.4 % (0.0-7.0) Basophils (%) (Auto) 0.3 % (0.0-2.0) Neutrophils # (Auto) 3.8 10 ^3/uL (1.6-8.6) Lymphocytes # (Auto) 1.2 10 ^3/uL (0.4-5.4) Monocytes # (Auto) 0.5 10 ^3/uL (0-1.3) Eosinophils # (Auto) 0.1 10 ^3/uL (0-0.8) Basophils # (Auto) 0 10 ^3/uL (0-0.2) Nucleated Red Blood Cells 0.0 % Sodium Level 139 mmol/L (136-145) Potassium Level 4.5 mmol/L (3.5-5.1) Chloride Level 102 mmol/L (98-107) Carbon Dioxide Level 30 mmol/L (20-31) Anion Gap 7 (5-15) Blood Urea Nitrogen 14 mg/dL (9-23) Creatinine 1.37 mg/dL (0.700-1.30) Glomerular Filtration Rate Calc 58 mL/min (>90) BUN/Creatinine Ratio 10.2 (10.0-20.0) Serum Glucose 89 mg/dL (74-106) Calcium Level 9.9 mg/dL (8.7-10.4) Total Bilirubin 1.0 mg/dL (0.2-1.0) Aspartate Amino Transferase (AST) 15 U/L (13-40) Alanine Aminotransferase (ALT) 17 U/L (7-40) Alkaline Phosphatase 100 U/L (46-116) Total Protein 6.1 g/dL (5.7-8.2) Albumin 3.8 g/dL (3.2-4.8) Troponin I High Sensitivity 902 ng/L (</=54) Prothrombin Time 11.8 sec (9.3-11.8) Prothrombin Time INR 1.13 (0.9-1.15) Activated Partial Thromboplast Time 44.0 SEC (24.5-34.5) Test 11/08/24 05:51 11/08/24 03:05 11/08/24 03:00 11/08/24 00:40 Lactate Dehydrogenase 271 U/L (120-246) C-Reactive Protein High Sensitivity 1.38 mg/dL (<1.0) Triglycerides Level 95 mg/dL (< 150) Cholesterol Level 131 mg/dL (< 200) LDL Cholesterol 68 mg/dL (< 100) HDL Cholesterol 47 mg/dL (40-59) Thyroid Stimulating Hormone (TSH) 1.88 uIU/mL (0.55-4.78) Hemoglobin A1c 7.9 % A1C (<5.7) Urine Color Yellow (Yellow) Urine Clarity Clear (Clear) Urine pH 5.0 (5.0-9.0) Urine Specific [place] 1.016 (1.001-1.035) Urine Protein Trace (Negative) Urine Ketones Negative (Negative) Urine Blood 1+ /uL (Negative) Urine Nitrite Negative (Negative) Urine Bilirubin Negative (Negative) Urine Urobilinogen Normal mg/dL (Negative) Urine Leukocyte Esterase Trace /uL (Negative) Urine RBC 30 /hpf (0 - 3) Urine WBC 5 /hpf (0 - 3) Urine Squamous Epithelial Cells None seen /hpf (<5) Urine Bacteria None seen /hpf (None Seen) Urine Mucus Few (None Seen) Urine Glucose Normal mg/dL (Normal) Urine Opiates Screen Neg (NEGATIVE) Urine Fentanyl Screen Neg (NEGATIVE) Urine Barbiturates Screen Neg (NEGATIVE) Urine Phencyclidine Screen Neg (NEGATIVE) Urine Amphetamines Screen Neg (NEGATIVE) Urine Benzodiazepines Screen Neg (NEGATIVE) Urine Cocaine Screen Neg (NEGATIVE) Urine Cannabinoids Screen Neg (NEGATIVE) Influenza Type A Antigen Negative (Negative) Influenza Type B Antigen Negative (Negative) SARS-CoV-2 Antigen (Rapid) Negative (NEGATIVE) Test 11/08/24 00:28 11/08/24 00:04 Blood Gas Specimen Type Arterial Blood Gas Sample Site Right radial Blood Gas Patient Temperature 37.0 Arterial Blood Date Drawn [id number] Arterial Blood pH 7.480 (7.350-7.450) Arterial Blood Partial Pressure CO2 33.3 mmHg (35.0-48.0) Arterial Blood Partial Pressure O2 78.3 mmHg (83.0-108.0) Arterial Blood HCO3 24.2 mmol/L (21.0-28.0) Arterial Blood Oxygen Saturation 95.3 % (94.0-98.0) Arterial Blood Base Excess 1.4 mmol/L (-2.0-3.0) Arterial Blood Oxyhemoglobin 94.2 % (94.0-98.0) Arterial Blood Carboxyhemoglobin 0.8 % (0.5-1.5) Arterial Blood Methemoglobin 0.4 % (0.0-1.5) Ayush Test Modified Blood Gas Total Hemoglobin 14.90 g/dL (13.5-17.5) Blood Gas Modality Nasal cannula FiO2 % 28.0 D-Dimer, Quantitative 2.47 mg/L FEU (0.0-0.49) Magnesium Level 2.1 mg/dL (1.6-2.6) B-Type Natriuretic Peptide 1263.17 pg/mL (0-100) Other Laboratory Tests 11/11/24 05:00 Brief Hx & Hospital Course: Patient is a 64-year-old male with a past medical history of coronary artery disease s/p CABG, CVA x2, type 2 diabetes mellitus came to the ED with a chief complaint of worsening shortness of breath and chest pain. 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 Since the last 3-4 days he reports of worsening shortness of breath associated with orthopnea and PND. Patient also complains of cough associated with yellowish green sputum and chest pain which he described pressure-like sensation across the chest nonradiating, occurred at rest. On arrival to the ER 12 lead ECG was done which showed no evidence of acute ST segment or T-wave changes with the patient had changes suggestive of left ventricular hypertrophy and atrial enlargement. Troponins were elevated in the 800s. Patient reports that he was admitted around [place] in [place] for similar episode of chest pain and worsening shortness of breath. Past surgical history: CABG in 2008 Social history: Patient denies smoking, alcohol, drug use Home medications: Metoprolol succinate 25 mg, losartan 25 mg, Eliquis 5 mg b.i.d., clopidogrel 75 mg, aspirin 81 mg, atorvastatin 80 mg, isosorbide dinitrate 30 mg Hospital course Patient was admitted to the hospital with a chief complaint of worsening shortness of breath and chest pressure. Troponins were elevated and EEG report was reviewed which did not show any signs of acute ischemia. Echocardiography was done which showed LVEF 10%. Cardiology were consulted recommended medical management of acute exacerbation of heart failure with reduced ejection fraction. Chest x-ray and CT chest was done which showed bilateral pleural effusions and left lower lobe consolidation for pneumonia. Patient was started on IV antibiotics and IV Lasix. Interventional Radiology were consulted for drainage of pleural effusions but they recommended that the pleural effusions were not enough to tap. Over the course of hospital stay patient's oxygen requirement decreased and eventually was weaned of oxygen. Records were obtained from [facility] in [facility] which revealed patient had a LHC in sep 2024 in [place]: 3 grafts, GALEAS LAD patent, 1 SVG OM patent, 1 SVG OM occluded and multivessel disease, patient had reduced EF 15% at that admission which previously was 35% in 2022 as well and was counseled to continue GMDT, patient was also counseled about ICD he expressed he doesn't want it. Patient is non complaint with his medications, patient had also history of LV thrombus in 2022 . Patient was discharged home without need of oxygen and was advised to strictly follow the heart failure medications. Oral antibiotics amoxicillin and doxycycline were sent to the pharmacy. Discharge plan Patient was discharged to home in stable condition. Was advised against driving Advised to follow up with the primary care physician and travel money advisor in [facility] within 1 week. Advised to continue taking GDMT as prescribed and oral antibiotics amoxicillin 875 mg b.i.d for 7 days. and doxycycline 100 mg b.i.d. for 5 days. Consults/Reason for consult Cardiology consultation Operations or Procedures CT angiography chest FINDINGS: Lower neck and thyroid: Hypodense nodule measuring 12 x 9 mm in the right lobe of thyroid. Suggest ultrasound correlation. Non-opacification of aorta is seen. No evidence of aneurysm. No mediastinal masses or lymphadenopathy is seen. Central pulmonary arteries appear unremarkable. The right and left main pulmonary arteries appear normal. No evidence of filling defect is seen. Smooth interlobular septal thickening is right upper lobe. Subsegmental atelectasis is seen in the right middle lobe, lingula and both lower lobes. Patchy areas of consolidation and collapse are noted in both lung bases. Small calcified granuloma is seen in the right lung base. Rest of the lung parenchyma appears unremarkable. Moderate bilateral pleural effusion is seen causing passive atelectasis of the underlying lung parenchyma. No pericardial effusion is seen. Degenerative changes are seen in the thoracic spine. Sternotomy wires are seen Visualized Upper Abdomen: Non-obstructive 2-3 mm right renal calculi are seen. IMPRESSION: 1. No evidence of pulmonary arterial thromboembolism. 2. No evidence of aortic aneurysm 3. Smooth interlobular septal thickening is right upper lobe. 4. Patchy areas of consolidation and collapse are noted in both lung bases. 5. Moderate bilateral pleural effusion is seen causing passive atelectasis of the underlying lung parenchyma. 2D ECHOCARDIOGRAM severe dilated LV end stage CHF LVEF 10% by viusal estimate RV dysfunctio noted biatrial enlargement moderate to severe mitral regurg moderat tricuspid regurg Condition at Discharge: Good Final Diagnosis/Problems List Acute hypoxic respiratory failure Acute exacerbation of heart failure with reduced ejection fraction, NYHA class 3 Coronary artery disease s/p CABG Ischemic cardiomyopathy Paroxysmal atrial fibrillation Suspected community-acquired pneumonia likely due to Gram-negative versus atypical bacteria Bilateral pleural effusion Uncontrolled type 2 diabetes mellitus H/o Stroke Discharge Disposition: Home Discharge Instruct/Medications Diet: Cardiac 2g Na,low cholest Diet comment: Fluid restrictions 1200ml/day Activity: No Restrictions, As Tolerated Follow Up/Referral: Follow up with the PCP within one week Follow up with his travel money advisor in 1-2 weeks Medications: as per EMR Discharge Statement: "Patient was advised to return to the ER or call 911 if any headaches, dizziness, shortness of breath, chest pain, abdominal pain, bleeding, fevers, or worsening of medical condition. Patient was counseled about treatment plan, medications, possible side effects, patientverbalized understanding. All questions were answered to the best of my ability. This discharge took greater then 30 minutes in planning, reviewing documentation, counseling the patient, and discussing with other team members." ASSESSMENT ASSESSMENT Assessment Acute hypoxic respiratory failure Acute exacerbation of heart failure with reduced ejection fraction, NYHA class 3 Coronary artery disease s/p CABG Ischemic cardiomyopathy Paroxysmal atrial fibrillation Suspected community-acquired pneumonia likely due to Gram-negative versus atypical bacteria Bilateral pleural effusion Uncontrolled type 2 diabetes mellitus H/o Stroke ALBARO BRYSON RESIDENT Nov 11, 2024 19:08
--- NOTE | 2024-11-12 13:41 | ECG ---
[facility] Test Date: 2024-11-08 Test Time: 09:50:25 Pat Name: LOGAN VALDERRAMA Department: ED Room: 0284T A Gender: M Cloth Printer: RG : [id number] Requested By: NILES COELLO Order Number: [id number] Reading MD: Donald Marte Measurements Intervals [place] Rate: 88 P: 77 HI: 155 QRS: 110 QRSD: 148 T: -86 QT: 392 QTc: 475 Interpretive Statements Sinus rhythm Probable left atrial enlargement IVCD, consider atypical RBBB Repol abnrm suggests ischemia, lateral leads Electronically Signed On 11-14-2024 9:50:26 PST by Donald Marte Please click the below link to view image of tracing.
--- NOTE | 2024-11-13 14:28 | ECG ---
[facility] Test Date: 2024-11-11 Test Time: 14:43:32 Pat Name: LOGAN VALDERRAMA Department: Room: 0284T A Gender: M Aerosol Supervisor: JENNIFER : [id number] Requested By: ALBARO BRYSON Order Number: [id number] Reading MD: Yaron Vazquez Measurements Intervals [place] Rate: 97 P: 66 NM: 150 QRS: 104 QRSD: 161 T: 254 QT: 397 QTc: 505 Interpretive Statements Sinus rhythm Probable left atrial enlargement LBBB Baseline wander in lead(s) V2 No prior EKG Electronically Signed On 11-14-2024 8:02:18 PST by Yaron Vazquez Please click the below link to view image of tracing.
== END 2024-11-11 17:05 | disposition home or self-care (01) | DRG 280 ==
LOC: EDBD 23:33 → ER 23:33 → TELE 11-08 02:51 → TELE-WESTW 11-08 18:35
PROVIDERS: ADMIT Hospitalist; ATTEND Hospitalist
DX: I13.0 Hypertensive heart and chronic kidney disease with heart failure and stage 1 through stage 4 chronic kidney disease, or unspecified chronic kidney disease (principal); I50.23 Acute on chronic systolic (congestive) heart failure; I21.A1 Myocardial infarction type 2; J15.69 Pneumonia due to other Gram-negative bacteria; J96.01 Acute respiratory failure with hypoxia; E78.5 Hyperlipidemia, unspecified; I49.3 Ventricular premature depolarization; I25.5 Ischemic cardiomyopathy; I27.20 Pulmonary hypertension, unspecified; I25.10 Atherosclerotic heart disease of native coronary artery without angina pectoris; I48.0 Paroxysmal atrial fibrillation; E66.9 Obesity, unspecified; E11.22 Type 2 diabetes mellitus with diabetic chronic kidney disease; N18.9 Chronic kidney disease, unspecified; I95.9 Hypotension, unspecified; Z79.4 Long term (current) use of insulin; Z95.1 Presence of aortocoronary bypass graft; Z86.73 Personal history of transient ischemic attack (TIA), and cerebral infarction without residual deficits; Z68.26 Body mass index [BMI] 26.0-26.9, adult
CPT/HCPCS: 36415; 36600; 71045; 71275; 80048; 80053; 80061; 80307; 81001; 82805; 82962; 83036; 83615; 83735; 83880; 84443; 84484; 85025; 85379; 85610; 85730; 86141; 87081; 87426; 87804; 93005; 93306; 94640; 97163; G0378; J1815; J1956; J2543